=== PATIENT | male | born 1970 | race Caucasian/White ===

== ENCOUNTER 2020-05-29 10:54 | Outpatient (REF) | payer OTHER, SELFPAY | END 2020-05-29 10:55 | disposition home or self-care (01) | LOC: HO.LAB 10:54 | PROVIDERS: Visit Provider Internal Medicine | DX: Z20.828 Contact with and (suspected) exposure to other viral communicable diseases (principal) | CPT/HCPCS: C9803; U0003 ==

== ENCOUNTER 2020-06-18 15:02 | Outpatient (REF) | payer OTHER, SELFPAY | END 2020-06-18 15:03 | disposition home or self-care (01) | LOC: HO.LAB 15:02 | PROVIDERS: Visit Provider Internal Medicine | DX: Z20.822 Contact with and (suspected) exposure to COVID-19 (principal) | CPT/HCPCS: 36415; C9803; U0003 ==

== ENCOUNTER → 2020-09-05 10:01 | Outpatient (BNVA) | payer OTHER, SELFPAY | PROVIDERS: PCP Internal Medicine; Visit Provider Urology | DX: Z13.89 Encounter for screening for other disorder (principal) | CPT/HCPCS: 99202 ==

== ENCOUNTER → 2020-12-06 09:50 | Outpatient (BNVA) | payer OTHER, SELFPAY | PROVIDERS: PCP Internal Medicine; Visit Provider Urology | DX: E29.1 Testicular hypofunction (principal); N52.39 Other and unspecified postprocedural erectile dysfunction | CPT/HCPCS: 99212 ==

== ENCOUNTER → 2020-12-13 08:49 | Outpatient (BNVA) | payer OTHER, SELFPAY | PROVIDERS: PCP Internal Medicine; Visit Provider Urology | DX: E29.1 Testicular hypofunction (principal) | CPT/HCPCS: 96372 ==

== ENCOUNTER 2021-01-07 08:04 | Outpatient (REF) | payer OTHER, SELFPAY ==
[2021-01-07 08:42] LABS: MANUAL DIFF FLAG NO
[2021-01-07 09:05] LABS: Basophils Absolute Auto 0.1 X10*3/uL (0.0-0.2); Basophils Percent Auto 0.5 % (0-2); Eosinophils Absolute Auto 0.3 X10*3/uL (0.0-0.4); Eosinophils Percent Auto 2.6 % (0-4); Imm Gran Abs Auto 0.09 X10*3/uL (0.00-0.03); Imm Gran Pct Auto 0.9 % (0.0-0.4); Lymphocytes Absolute Auto 3.3 X10*3/uL (1.2-4.9); Lymphocytes Percent Auto 34.2 % (20-40); Mean Corpuscular HGB Conc 33.3 g/dl (31.0-36.0); Mean Corpuscular Hemoglobin 30.8 pg (27.0-33.0); Mean Corpuscular Volume 92.5 fL (80-98); Mean Platelet Volume 10.3 fL (9.4-12.4); Monocytes Absolute Auto 0.7 X10*3/uL (0.1-1.2); Monocytes Percent Auto 6.9 % (2-11); Neutrophils Absolute Auto 5.3 X10*3/uL (2.0-8.3); Neutrophils Percent Auto 54.9 % (45-73); Platelet Count 235 X10*3/uL (160-400); Red Blood Count 4.54 X10*6/uL (4.60-5.80); Red Cell Distribution Width 13.9 % (11.0-16.0); White Blood Count 9.7 X10*3/uL (4.8-10.8)
[2021-01-07 10:26] LABS: Alanine Aminotransferase 40 U/L (0-40); Albumin Level 4.4 g/dL (3.5-5.0); Alkaline Phosphatase 58 U/L (39-117); Anion Gap 17 (12-20); Aspartate Amino Transferase 29 U/L (5-37); Bilirubin Total 0.4 mg/dL (0.0-1.0); Blood Urea Nitrogen 15 mg/dL (9-16); Calcium 9.5 mg/dL (8.4-10.2); Carbon Dioxide 22 mmol/L (22-29); Chloride 104 mmol/L (96-108); Cholesterol 241 mg/dL; Estimated Glomerular Filt Rate > 60; Glucose Fasting 131 mg/dL (60-99); HDL Cholesterol 25 mg/dL; LDL Cholesterol Calculated 171 mg/dl; Potassium 4.3 mmol/L (3.3-5.1); Sodium 139 mmol/L (135-145); Total Protein 7.6 g/dL (6.5-8.0); Triglycerides 225 mg/dL
[2021-01-11 11:06] LABS: Vitamin D 25-OH, D2 <4 ng/mL; Vitamin D 25-OH, D3 11 ng/mL; Vitamin D 25-OH, Total 11 ng/mL (30-100)
[2021-01-14 17:05] LABS: Testosterone, Free 90.7 pg/mL (35.0-155.0); Testosterone, Total 428 ng/dL (250-1100)
== END 2021-01-07 08:05 | disposition home or self-care (01) ==
LOC: HO.LAB 08:04
PROVIDERS: Absent Provider Internal Medicine; PCP Internal Medicine; Visit Provider Urology
DX: E55.9 Vitamin D deficiency, unspecified (principal); I25.810 Atherosclerosis of coronary artery bypass graft(s) without angina pectoris; D64.9 Anemia, unspecified; N52.39 Other and unspecified postprocedural erectile dysfunction; E29.1 Testicular hypofunction; I10 Essential (primary) hypertension
CPT/HCPCS: 36415; 80053; 80061; 82306; 84402; 84403; 85025

== ENCOUNTER → 2021-01-17 09:07 | Outpatient (BNVA) | payer OTHER, SELFPAY | PROVIDERS: PCP Internal Medicine; Visit Provider Urology ==

== ENCOUNTER 2021-02-27 11:27 | Outpatient (REF) | payer OTHER, SELFPAY ==
[2021-02-27 12:54] LABS: Appearance Urine CLEAR; Color Urine YELLOW; Glucose Urine UA >=1000 MG/DL (NEG); Leukocyte Esterase Urine NEG (NEG); Nitrite Urine NEG (NEG); Specific Gravity - Urine 1.025 (1.005-1.025); Urine Blood NEG (NEG); Urine Ketones 5 MG/DL (NEG); Urine Protein NEG (NEG-TRACE)
[2021-02-27 13:11] LABS: Creatinine Urine 138.27 mg/dL; Microalbum/Creatinine Ratio Ur 14.4 ug/mg cr
[2021-02-27 13:22] LABS: Alanine Aminotransferase 34 U/L (0-40); Albumin Level 4.3 g/dL (3.5-5.0); Alkaline Phosphatase 71 U/L (39-117); Anion Gap 14 (12-20); Aspartate Amino Transferase 25 U/L (5-37); Bilirubin Total 0.6 mg/dL (0.0-1.0); Blood Urea Nitrogen 15 mg/dL (9-16); Calcium 9.5 mg/dL (8.4-10.2); Carbon Dioxide 27 mmol/L (22-29); Chloride 99 mmol/L (96-108); Cholesterol 225 mg/dL; Estimated Glomerular Filt Rate > 60; Glucose Fasting 311 mg/dL (60-99); HDL Cholesterol 23 mg/dL; LDL Cholesterol Calculated 143 mg/dl; Potassium 4.5 mmol/L (3.3-5.1); Sodium 135 mmol/L (135-145); Total Protein 7.2 g/dL (6.5-8.0); Triglycerides 298 mg/dL
[2021-02-27 14:48] LABS: RBC Urine 0-2 /HPF (0)
[2021-02-27 14:49] LABS: Squamous Epithelial Cell Urine 2+ /LPF
== END 2021-02-27 11:28 | disposition home or self-care (01) ==
LOC: HO.LAB 11:27
PROVIDERS: Absent Provider Internal Medicine; PCP Internal Medicine; Visit Provider Nurse Practitioner Family
DX: I25.810 Atherosclerosis of coronary artery bypass graft(s) without angina pectoris (principal); E78.5 Hyperlipidemia, unspecified; E11.9 Type 2 diabetes mellitus without complications
CPT/HCPCS: 36415; 80053; 80061; 81001; 82043

== ENCOUNTER → 2021-04-18 11:54 | Outpatient (BNVA) | payer OTHER, SELFPAY | PROVIDERS: Visit Provider Urology ==

== ENCOUNTER 2021-07-10 08:14 | Outpatient (REF) | payer OTHER, SELFPAY ==
[2021-07-10 09:01] LABS: Hematocrit 39.6 % (42.0-52.0); Hemoglobin 13.3 g/dl (14.0-18.0); Mean Corpuscular HGB Conc 33.6 g/dl (31.0-36.0); Mean Corpuscular Hemoglobin 30.9 pg (27.0-33.0); Mean Corpuscular Volume 92.1 fL (80.0-98.0); Mean Platelet Volume 10.6 fL (9.4-12.4); Platelet Count 204 X10*3/uL (160-400); Red Cell Distribution Width 12.6 % (11.0-16.0); White Blood Count 8.8 X10*3/uL (4.8-10.8)
[2021-07-10 09:27] LABS: Alanine Aminotransferase 48 U/L (0-40); Albumin Level 4.3 g/dL (3.5-5.0); Alkaline Phosphatase 68 U/L (39-117); Anion Gap 13 (12-20); Aspartate Amino Transferase 24 U/L (5-37); Bilirubin Total 0.3 mg/dL (0.0-1.0); Blood Urea Nitrogen 17 mg/dL (9-16); Calcium 9.3 mg/dL (8.4-10.2); Carbon Dioxide 25 mmol/L (22-29); Chloride 104 mmol/L (96-108); Cholesterol 240 mg/dL; Estimated Glomerular Filt Rate > 60; Glucose Fasting 291 mg/dL (60-99); HDL Cholesterol 23 mg/dL; LDL Cholesterol Calculated 139 mg/dl; Potassium 4.3 mmol/L (3.3-5.1); Sodium 138 mmol/L (135-145); Total Protein 7.3 g/dL (6.5-8.0); Triglycerides 394 mg/dL
[2021-07-10 09:45] LABS: Prostate Specific Antigen 0.58 ng/mL (<0.05-4.0)
[2021-07-10 09:50] LABS: Microalbum/Creatinine Ratio Ur 13.2 ug/mg cr
[2021-07-14 14:16] LABS: Vitamin D 25-OH, D2 <4 ng/mL; Vitamin D 25-OH, D3 8 ng/mL; Vitamin D 25-OH, Total 8 ng/mL (30-100)
[2021-07-15 09:31] LABS: Testosterone, Total 166 ng/dL (250-1100)
== END 2021-07-10 08:15 | disposition home or self-care (01) ==
LOC: HO.LAB 08:14
PROVIDERS: Absent Provider Internal Medicine; PCP Internal Medicine; Visit Provider Urology
DX: E29.1 Testicular hypofunction (principal); I25.810 Atherosclerosis of coronary artery bypass graft(s) without angina pectoris; E78.5 Hyperlipidemia, unspecified; E11.9 Type 2 diabetes mellitus without complications; N52.39 Other and unspecified postprocedural erectile dysfunction; E55.9 Vitamin D deficiency, unspecified; Z12.5 Encounter for screening for malignant neoplasm of prostate
CPT/HCPCS: 36415; 80053; 80061; 82043; 82306; 84153; 84403; 85027

== ENCOUNTER → 2021-07-25 08:47 | Outpatient (BNVA) | payer OTHER, SELFPAY | PROVIDERS: Visit Provider Urology ==

== ENCOUNTER 2022-01-15 07:02 | Outpatient (REF) | payer MEDICARE, MEDICAID, SELFPAY ==
[2022-01-15 07:31] LABS: MANUAL DIFF FLAG NO
[2022-01-15 07:52] LABS: Basophils Absolute Auto 0.1 X10*3/uL (0.0-0.2); Basophils Percent Auto 0.7 % (0-2); Eosinophils Absolute Auto 0.2 X10*3/uL (0.0-0.4); Eosinophils Percent Auto 2.5 % (0-4); Hematocrit 42.2 % (42.0-52.0); Hemoglobin 14.3 g/dl (14.0-18.0); Imm Gran Abs Auto 0.05 X10*3/uL (0.00-0.03); Imm Gran Pct Auto 0.5 % (0.0-0.4); Lymphocytes Absolute Auto 3.8 X10*3/uL (1.2-4.9); Lymphocytes Percent Auto 39.6 % (20-40); Mean Corpuscular HGB Conc 33.9 g/dl (31.0-36.0); Mean Corpuscular Hemoglobin 30.4 pg (27.0-33.0); Mean Corpuscular Volume 89.6 fL (80.0-98.0); Mean Platelet Volume 10.6 fL (9.4-12.4); Monocytes Absolute Auto 0.6 X10*3/uL (0.1-1.2); Monocytes Percent Auto 6.1 % (2-11); Neutrophils Absolute Auto 4.8 x10*3/uL (2.0-8.3); Neutrophils Percent Auto 50.6 % (45-73); Platelet Count 227 X10*3/uL (160-400); Red Blood Count 4.71 X10*6/uL (4.60-5.80); White Blood Count 9.5 X10*3/uL (4.8-10.8)
[2022-01-15 08:21] LABS: Alanine Aminotransferase 69 U/L (0-40); Albumin Level 4.6 g/dL (3.5-5.0); Alkaline Phosphatase 65 U/L (39-117); Anion Gap 17 (12-20); Aspartate Amino Transferase 38 U/L (5-37); Bilirubin Total 0.3 mg/dL (0.0-1.0); Blood Urea Nitrogen 14 mg/dL (9-16); Calcium 9.6 mg/dL (8.4-10.2); Carbon Dioxide 26 mmol/L (22-29); Chloride 102 mmol/L (96-108); Cholesterol 245 mg/dL; Estimated Glomerular Filt Rate > 60; Glucose Fasting 147 mg/dL (60-99); HDL Cholesterol 28 mg/dL; Iron 89 mcg/dL (45-160); LDL Cholesterol Calculated 148 mg/dl; Percent Iron Saturation 25 % (15-50); Potassium 4.6 mmol/L (3.3-5.1); Sodium 140 mmol/L (135-145); Total Iron Binding Capacity 353 mcg/dL (228-428); Total Protein 7.8 g/dL (6.5-8.0); Triglycerides 345 mg/dL; Unsaturated Iron Binding 264 ug/dL
[2022-01-15 08:33] LABS: Vitamin D 25-OH Total 15.7 ng/mL (>30)
[2022-01-15 08:41] LABS: Prostate Specific Antigen 0.66 ng/mL (<0.05-4.0)
[2022-01-15 08:48] LABS: Creatinine Urine 169.98 mg/dL; Microalbum/Creatinine Ratio Ur 11.1 ug/mg cr
[2022-01-21 17:52] LABS: Testosterone, Total 295 ng/dL (250-1100)
== END 2022-01-15 07:03 | disposition home or self-care (01) ==
LOC: HO.LAB 07:02
PROVIDERS: Absent Provider Internal Medicine; PCP Internal Medicine; Visit Provider Urology
DX: Z12.5 Encounter for screening for malignant neoplasm of prostate (principal); E11.9 Type 2 diabetes mellitus without complications; D64.9 Anemia, unspecified; I10 Essential (primary) hypertension; E29.1 Testicular hypofunction; E55.9 Vitamin D deficiency, unspecified
CPT/HCPCS: 36415; 80053; 80061; 82043; 82306; 83540; 84153; 84403; 85025

== ENCOUNTER → 2022-01-22 08:48 | Outpatient (BNVA) | payer MEDICARE, MEDICAID, SELFPAY | PROVIDERS: PCP Internal Medicine; Visit Provider Urology | DX: E29.1 Testicular hypofunction (principal); N52.1 Erectile dysfunction due to diseases classified elsewhere; E11.69 Type 2 diabetes mellitus with other specified complication; Z79.4 Long term (current) use of insulin | CPT/HCPCS: 99212 ==

== ENCOUNTER → 2022-08-11 08:53 | Outpatient (BNVA) | payer MEDICARE, MEDICAID, SELFPAY | PROVIDERS: PCP Internal Medicine; Visit Provider Physician Assistant | DX: Z01.818 Encounter for other preprocedural examination (principal); K59.09 Other constipation | CPT/HCPCS: 99202 ==

== ENCOUNTER → 2022-09-02 09:05 | Outpatient (BNVA) | payer MEDICARE, MEDICAID, SELFPAY | PROVIDERS: PCP Internal Medicine; Referring Provider Internal Medicine; Visit Provider Internal Medicine Cardiovascular Disease | DX: I25.10 Atherosclerotic heart disease of native coronary artery without angina pectoris (principal) | CPT/HCPCS: 93005; 99202 ==

== ENCOUNTER 2022-11-16 08:26 | Outpatient (REF) | payer MEDICARE, MEDICAID, SELFPAY ==
[2022-11-16 09:05] LABS: Hematocrit 44.5 % (42.0-52.0)
[2022-11-16 09:42] LABS: Cholesterol 256 mg/dL; HDL Cholesterol 29 mg/dL; LDL Cholesterol Calculated 175 mg/dl; Triglycerides 262 mg/dL
[2022-11-16 09:44] LABS: Prostate Specific Antigen 0.99 ng/mL (<0.05-4.0)
[2022-11-18 17:13] LABS: CRP High Sensitivity 2.9 mg/L
[2022-11-22 11:24] LABS: Testosterone, Total 205 ng/dL (250-1100)
== END 2022-11-16 08:27 | disposition home or self-care (01) ==
LOC: HO.LAB 08:26
PROVIDERS: Internal Medicine Cardiovascular Disease; PCP Internal Medicine; Visit Provider Urology
DX: Z12.5 Encounter for screening for malignant neoplasm of prostate (principal); E29.1 Testicular hypofunction; I25.10 Atherosclerotic heart disease of native coronary artery without angina pectoris
CPT/HCPCS: 36415; 80061; 84153; 84403; 85014; 86141

== ENCOUNTER → 2022-11-27 11:28 | Outpatient (BNVA) | payer MEDICARE, MEDICAID, SELFPAY | PROVIDERS: PCP Internal Medicine; Visit Provider Urology | DX: E11.69 Type 2 diabetes mellitus with other specified complication (principal); N52.1 Erectile dysfunction due to diseases classified elsewhere; E29.1 Testicular hypofunction | CPT/HCPCS: Q3014 ==

== ENCOUNTER 2022-12-07 08:03 | Outpatient (REF) | payer MEDICARE, MEDICAID, SELFPAY ==
[2022-12-07 09:45] LABS: Alanine Aminotransferase 42 U/L (0-40); Albumin Level 4.1 g/dL (3.5-5.0); Alkaline Phosphatase 59 U/L (39-117); Anion Gap 14 (12-20); Aspartate Amino Transferase 21 U/L (5-37); Bilirubin Total 0.4 mg/dL (0.0-1.0); Blood Urea Nitrogen 19 mg/dL (9-16); Carbon Dioxide 22 mmol/L (22-29); Chloride 105 mmol/L (96-108); Cholesterol 252 mg/dL; Estimated Glomerular Filt Rate > 60; Glucose Fasting 150 mg/dL (60-99); HDL Cholesterol 27 mg/dL; Iron 79 mcg/dL (45-160); LDL Cholesterol Calculated 162 mg/dl; Percent Iron Saturation 28 % (15-50); Potassium 3.7 mmol/L (3.3-5.1); Sodium 137 mmol/L (135-145); Total Iron Binding Capacity 284 mcg/dL (228-428); Total Protein 7.4 g/dL (6.5-8.0); Triglycerides 317 mg/dL; Unsaturated Iron Binding 205 ug/dL
[2022-12-07 09:48] LABS: Vitamin D 25-OH Total 29.4 ng/mL (>30)
== END 2022-12-07 08:04 | disposition home or self-care (01) ==
LOC: HO.LAB 08:03
PROVIDERS: PCP Internal Medicine; Visit Provider Internal Medicine
DX: D64.9 Anemia, unspecified (principal); E55.9 Vitamin D deficiency, unspecified; E53.8 Deficiency of other specified B group vitamins; E11.40 Type 2 diabetes mellitus with diabetic neuropathy, unspecified; E78.5 Hyperlipidemia, unspecified
CPT/HCPCS: 36415; 80053; 80061; 82043; 82306; 82607; 82746; 83036; 83540; 85025

== ENCOUNTER 2022-12-17 16:15 | Outpatient (AMB) | payer MEDICARE, MEDICAID, SELFPAY ==
[2022-12-17 16:16] VITALS: BP 120/80; BMI 40.2
--- NOTE | 2022-12-17 16:16 | A.OFFPC_ITS ---
Vital Signs 12/17/22 16:16 Height 5 ft 11 in Weight 288 lb BMI 40.2 BP 120/80 Blood Pressure Location Lt brachial Position Sitting Intake Visit Reasons: dm Intake Note: Patient here for a follow up dm Riprap Placer Required: No Accompanied by: Self / Same As Patient Allergies No Known Allergies Allergy (Verified 12/17/22 16:50) Medication List - Last Reconciled 12/17/22 by Cynthia Rizzo MD aspirin 81 mg PO DAILY 90 days atorvastatin 80 mg PO DAILY 90 days bisacodyl (Dulcolax (bisacodyl)) 10 mg (2 x 5 mg) PO ONCE 1 day blood sugar diagnostic (FreeStyle Lite Strips) As directed test 2x daily blood-glucose meter (FreeStyle Lite Meter kit) As directed 2x day cholecalciferol (vitamin D3) 50 mcg PO DAILY 90 days docusate sodium (Colace) 200 mg (2 x 100 mg) PO BEDTIME ezetimibe 10 mg PO DAILY 90 days famotidine 20 mg PO DAILY 90 days flash glucose scanning reader ([employer] Chey 14 Day [place]) As directed furosemide 20 mg PO DAILY lancets (FreeStyle Lancets) As directed 2x daily losartan 25 mg PO DAILY metformin 1,000 mg PO BID 90 days metformin 500 mg PO BIDWMEAL methylcellulose (laxative) (Citrucel) 500 mg PO BID metoprolol succinate ER 25 mg PO DAILY 90 days needle (disp) 18 G (BD Regular Bevel Vanlue) To draw up medication needle (disp) 22 G (BD Regular Bevel Vanlue) For testosterone injection weekly oxycodone 10 mg PO BID PRN 30 days polyethylene glycol 3350 (Miralax) 238 grams PO ONCE 1 day sertraline 50 mg PO DAILY 90 days syringe (disposable) As directed for weekly testosterone injection syringe with needle (BD SafetyGlide Shielding Regular Bevel) As directed testosterone cypionate (Depo-Testosterone) 80 mg (0.4 mL) subcut QWEEK 4 weeks ticagrelor (Brilinta) 90 mg PO BID 90 days Tobacco use date assessed: 06/25/22 Dental Screening Dental Screen Date: 12/17/22 Did you have a dental visit in the last 12 months?: Yes Did you have a dental problem in the last 6 months where you did not have access to dental care?: No Was dental information given to patient?: Patient has dentist HPI HPI Comments History of Present Illness Details This is a 52-year-old female with diabetes mellitus type 2, hypertension, mixed hyperlipidemia, severe depression and morbid obesity that comes today for follow-up on his conditions. A1c has improved but still not on goal and I will add Farxiga. Blood pressure stable. Cholesterol and triglycerides are elevated and LDL not on goal because he is not compliant with atorvastatin more Zetia. I will add fenofibrate for triglycerides. Depression has improved with sertraline. He is morbidly obese with a BMI of 40.2 on was advised to diet and exercise as tolerated to reach BMI goal less than 30. Declines weight loss surgery. FORMERLY [facility] Medical History (Updated 12/17/22 @ 17:11 by Cynthia Rizzo MD) CAD (coronary artery disease) Diabetes mellitus Essential hypertension Insomnia Long-term use of aspirin therapy Morbid obesity KHOA (obstructive sleep apnea) Severe depression Smoker Sternal pain Surgical History History of coronary artery bypass graft x 3 History of sternectomy Stented coronary artery Family History Father Cancer Diabetes Hypertension Stroke Mother Hypertension Diabetes Paternal Grandmother Cancer Skin cancer Paternal Uncle Colon cancer Family/Other FH: mental illness Maternal Uncle Cancer Social History Household Members Other:: lives alone Housing: Apartment Alcohol intake: never Patient Tobacco Use Status: Current someday Tobacco user Tobacco use type: Cigarette Cigarettes Per Day: 2 e-Cigarette/Vaping Use: Never Used Second Hand Smoke Exposure: No service: No Current occupational status: unemployed Cognitive needs: No Hearing needs: No Vision needs: Yes Questionnaire Thrive Questionnaire Date Thrive assessed: 06/25/22 CÉSAR-7 AMB Questionnaire CÉSAR-7 Date CÉSAR - 7 assessed: 06/25/22 Source: Developed by Drs. Reji Nelson, Linda Sanchez, [employer] and colleagues, with an educational arnold from [employer]. Review of Systems Const All systems reviewed & are unremarkable except as noted in HPI and below Eyes Reports no additional complaints, Denies change in vision and Denies other visual disturbances Card Denies chest pain at rest, Denies chest pain with activity, Denies edema, Denies irregular heart rhythm, Denies claudication, Denies dyspnea, Denies dyspnea on exertion, Denies orthopnea, Denies paroxysmal nocturnal dyspnea and Denies slow heart rate Resp Denies cough, Denies dyspnea and Denies dyspnea on exertion GI Denies abdominal pain, Denies change in bowel habits, Denies excessive flatus, Denies nausea and Denies vomiting Denies urinary hesitancy, Denies urinary incontinence and Denies urinary urgency Musc Denies abnormal gait, Denies atrophy, Denies deformity and Denies limited range of motion Skin/Breast Denies bleeding lesions, Denies changing lesions and Denies rash Neuro Denies abnormal gait and Denies lack of coordination Physical exam (Primary Care) Vital Signs: Last Vital Signs BP 120/80 12/17/22 16:16 BMI result Body Mass Index 40.2 Tobacco/Smoking Status: Tobacco use Status Tobacco use date assessed 06/25/22 12/17/22 16:25 Patient Tobacco Use Status Current someday Tobacco 12/17/22 16:25 Tobacco use type Cigarette 12/17/22 16:25 e-Cigarette/Vaping Use Never Used 12/17/22 16:25 Thrive Assessment: Date of Thrive Assessment Date Thrive assessed 06/25/22 12/17/22 16:25 Eyes General: appearance normal, both eyes and all related structures Eyelids: Yes eyelids normal Conjunctivae: conjunctivae normal Neck Neck: Yes normal visual inspection and Yes supple Resp Effort & Inspection: normal respiratory effort Auscultation: clear to auscultation bilaterally Cardio Jugular venous distension: no JVD Rate: regular rate Rhythm: regular rhythm Heart sounds: S1 normal heart sound present and S2 normal heart sound present Extrem General: Yes full ROM Assessment and Plan Assessment & Plan (1) Diabetes mellitus: Code(s): E11.9 - Type 2 diabetes mellitus without complications Plan: Continue metformin. Start Farxiga. A1c goal is equal or less than 7%. (2) Morbid obesity with BMI of 40.0-44.9, adult: Code(s): E66.01 - Morbid (severe) obesity due to excess calories; Z68.41 - Body mass index [BMI] 40.0-44.9, adult Plan: Start diet and exercise. BMI goal is less than 30. (3) Severe depression: Code(s): F32.2 - Major depressive disorder, single episode, severe without psychotic features Plan: Continue sertraline. (4) Essential hypertension: Code(s): I10 - Essential (primary) hypertension Plan: Continue losartan. Blood pressure goal is equal or less than 130/80. (5) Mixed hyperlipidemia: Code(s): E78.2 - Mixed hyperlipidemia Plan: Continue statins and Zetia. Start fenofibrate. LDL goal is less than 70. Medications: New fenofibrate 54 mg PO DAILY 90 days 90 tabs 1RF dapagliflozin propanediol (Farxiga) 5 mg PO DAILY 90 days 90 tabs 1RF Coding Level of Care Code Est Pt Level 4 (75526) Diagnoses Diabetes mellitus E11.9 Morbid obesity with BMI of 40.0-44.9, adult E66.01; Z68.41 Severe depression F32.2 Essential hypertension I10 Mixed hyperlipidemia E78.2 Time Spent (min) 24
== END 2022-12-17 16:59 | disposition home or self-care (01) ==
PROVIDERS: Visit Provider Internal Medicine
DX: E11.9 Type 2 diabetes mellitus without complications (principal); E66.01 Morbid (severe) obesity due to excess calories; Z68.41 Body mass index [BMI] 40.0-44.9, adult; F32.2 Major depressive disorder, single episode, severe without psychotic features; I10 Essential (primary) hypertension; E78.2 Mixed hyperlipidemia
CPT/HCPCS: 99214

== ENCOUNTER 2023-01-26 10:41 | Day surgery (SDC) | payer MEDICARE, MEDICAID, SELFPAY ==
[2023-01-22 15:06] VITALS: BMI 40.4
--- NOTE | 2023-01-26 11:26 | MHC.SHP ---
Pre-Procedural Eval Section A Date of Service: 01/26/23 Section B Chief Complaint: Screening Details of Present Illness: uncle with CRC Relevant Family History (Specify if Yes): Yes Relevant Social History: Tobacco Use Present Medications: see Short Stay Collaborative assessment Medical History: Significant History (CAD (coronary artery disease) Diabetes mellitus Essential hypertension Insomnia Long-term use of aspirin therapy Morbid obesity KHOA (obstructive sleep apnea) Severe depression Smoker Sternal pain) History of Previous Operations: Relevant previous surgery/procedure and date(s) (History of coronary artery bypass graft x 3 History of sternectomy Stented coronary artery) Allergies: Allergies Allergy/AdvReac Type Severity Reaction Status Date / Time No Known Allergies Allergy Verified 12/17/22 16:50 Review of Systems Sugical H&P ROS: Negative: Constitution, Cardiovascular, Respiratory, Neurological, Psychiatric, Hem-Onc, Allergic/Immunologic, Gastrointestinal, Genitourinary, Musculoskeletal, Integumentary, Endocrine and Eyes/Ears/Nose/Throat Exam Surgical H&P Exam: Normal: HEENT, Normal: Heart, Normal: Lungs, Normal: Extremities, Normal: Abdomen, Normal: Skin and Normal: Neurological Plan Diagnosis/Plan: Unchanged I have reviewed the history and physical and performed a pertinent physical examination on my patient. No changes have occurred unless specified. Time Spent With Patient Time: Total time managing care of this patient today ____ minutes.
[2023-01-26 11:48] VITALS: BP 131/82; PULSE 78; RESP 18; TEMP 36.3; O2SAT 99
--- NOTE | 2023-01-26 11:50 | P.CONAN_ITS ---
HPI - Anesthesia Eval Consult details Narrative: Colonoscopy FORMERLY [facility] Active Problems Active Problems: All Active Problems (Updated 12/17/22 @ 17:11 by Cynthia Rizzo MD) Mixed hyperlipidemia (Acute) CAD (coronary artery disease) (Acute) Hospital discharge follow-up (Acute) Chronic constipation (Acute) Screen for colon cancer (Acute) Physical exam (Acute) Erectile dysfunction associated with type 2 diabetes mellitus (Acute) Diabetes mellitus (Acute) Leg skin lesion, right (Acute) Morbid obesity with BMI of 40.0-44.9, adult (Acute) Essential hypertension (Acute) Long-term use of aspirin therapy (Acute) KHOA (obstructive sleep apnea) (Acute) Morbid obesity (Acute) Severe depression (Acute) Insomnia (Acute) Sternal pain (Acute) Erectile dysfunction (Acute) Hypogonadism in male (Acute) Past Medical History Medical History CAD (coronary artery disease) Diabetes mellitus Essential hypertension Insomnia Long-term use of aspirin therapy Morbid obesity KHOA (obstructive sleep apnea) Severe depression Smoker Sternal pain Family History Family History Father Cancer Diabetes Hypertension Stroke Mother Hypertension Diabetes Paternal Grandmother Cancer Skin cancer Paternal Uncle Colon cancer Family/Other FH: mental illness Maternal Uncle Cancer Family history of problems with anesthesia: No Surgical History Surgical History History of coronary artery bypass graft x 3 History of sternectomy Stented coronary artery History of Problems with Anesthesia: No Social History Social History Household Members Other:: lives alone Housing: Apartment Alcohol intake: never Patient Tobacco Use Status: Current someday Tobacco user Tobacco use type: Cigarette Cigarettes Per Day: 2 e-Cigarette/Vaping Use: Never Used Second Hand Smoke Exposure: No Advance Directives: No Advance Directives Information Provided: Yes service: No Current occupational status: unemployed Cognitive needs: No Hearing needs: No Vision needs: Yes Meds Allergies Allergy/AdvReac Type Severity Reaction Status Date / Time No Known Allergies Allergy Verified 12/17/22 16:50 Home Medications Medication Instructions Recorded Confirmed Last Taken Type syringe with needle 1 mL 25 gauge #1 ea 01/17/21 12/17/22 Unknown History x 5/8 (BD SafetyGlide Shielding Regular Bevel) furosemide 20 mg tablet 20 mg PO DAILY 08/24/22 12/17/22 Unknown History losartan 25 mg tablet 25 mg PO DAILY 08/24/22 12/17/22 Unknown History Exam Exam Date and Time: January 26, 2023 1150 Height,Weight and Vital Signs: Height 5 ft 11 in Weight 131.542 kg Airway Mallampati Class: III TM Dist: >3cm Neck ROM: Limited Heart: rrr Lungs: cta Assessment and Plan Assessment Anesthesia Assessment: Anesthesia Plan Discussed and Chart Reviewed Final Anesthetic Review Family History of Problems with Anesthesia: No History of Problems with Anesthesia: No NPO: Yes ASA Class: III Final Preanesthetic Review: No Changes in Pt Med Stat, Meds/Allgs Chart Reviewed, Consent Obtained/Reviewed and Anes Risks/Benef Reviewed Patient Risk: Intermediate Procedure Risk: Low Anesthetic Plan Anesthetic Plan: MAC: and Agree w/ Assess. and Plan Disposition: Standard PACU
[2023-01-26 12:01] LABS: Glucose, Whole Blood 115 mg/dL (60-115)
--- NOTE | 2023-01-26 12:01 | P.OP_ITS ---
Operative Note Operative Note Date of Service: 01/26/23 Narrative: Operative Information Procedure Description: Colonoscopy Indication: screening Anesthesia: MAC COLONOSCOPY Instrument: Olympus variable stiffness ADULT scope 190L Colonoscopy Monitoring: Vital signs and clinical assessment, continuous EKG monitoring, Pulse oximetry, Carbon Dioxide monitoring and blood pressure monitoring were done throughout the procedure. Colon withdrawal time was 21 minutes. Procedure: The patient was placed in the left lateral decubitis position and pre-procedure medications were administered. After a digital rectal examination of the ano-rectum, the video colonoscope was inserted into the rectum and advanced through the colon to the cecum/TI. The colonoscope was slowly withdrawn in a retrograde panoramic fashion and the colon mucosa was carefully examined including a retroflexed view of the rectum. Findings and interventions are described below. Procedure Difficulty: easy Findings: Terminal Ileum-normal Cecum:normal Ascending Colon: x2- 4-6 mm sessile polyps removed with cold forceps, and 3 sessile polyps 5-8 mm removed with cold snare Transverse Colon -normal Descending Colon: x1 sessile polyp 7-8 mm removed with cold snare Sigmoid Colon: x 4 sessile polyps 7-9 mm removed with cold snare Rectum: Retroflexion with small internal hemorrhoids, grade I Anorectum - normal Colon preparation: [place] Bowel Preparation Scale Right colon; 2 Transverse colon: 3 Left colon; 3 (0 = Unprepared colon segment with mucosa not seen due to solid stool that cannot be cleared. 1 = Portion of mucosa of the colon segment seen, but other areas of the colon segment not well seen due to staining, residual stool and/or opaque liquid. 2 = Minor amount of residual staining, small fragments of stool and/or opaque liquid, but mucosa of colon segment seen well. 3 = Entire mucosa of colon segment seen well with no residual staining, small fragments of stool or opaque liquid) Impression and Post Procedure Diagnosis: polyps internal hemorrhoids Plan: High fiber diet leaflet Avoid straining at stool, epsom salts and sitz bath, anusol supps or cream Repeat Colonoscopy in 2-3 years due to polyp burden or earlier if clinically indicated Above findings were reviewed with the patient and relevant handouts were provided if indicated.
[2023-01-26 13:00] VITALS: BP 115/67; PULSE 83; RESP 16; TEMP 36.3; O2SAT 94
[2023-01-26 13:15] VITALS: BP 122/66; PULSE 76; RESP 16; TEMP 36.5; O2SAT 95
== END 2023-01-26 14:16 | disposition home or self-care (01) ==
PROVIDERS: PCP Internal Medicine; Visit Provider Internal Medicine Gastroenterology
PROC: 0DJD8ZZ Inspection of Lower Intestinal Tract, Via Natural or Artificial Opening Endoscopic (ICD-10-PCS; CPT 45378; principal; 2023-01-26 12:30)
DX: Z12.11 Encounter for screening for malignant neoplasm of colon (principal); D12.2 Benign neoplasm of ascending colon; K63.5 Polyp of colon; K64.0 First degree hemorrhoids; K59.09 Other constipation; I25.10 Atherosclerotic heart disease of native coronary artery without angina pectoris; Z95.1 Presence of aortocoronary bypass graft; Z95.5 Presence of coronary angioplasty implant and graft; I10 Essential (primary) hypertension; G47.33 Obstructive sleep apnea (adult) (pediatric); E66.01 Morbid (severe) obesity due to excess calories; Z68.41 Body mass index [BMI] 40.0-44.9, adult; Z79.82 Long term (current) use of aspirin; Z79.4 Long term (current) use of insulin; Z79.899 Other long term (current) drug therapy; Z99.89 Dependence on other enabling machines and devices; F17.210 Nicotine dependence, cigarettes, uncomplicated
CPT/HCPCS: 45385; 45380; 82947; 88305

== ENCOUNTER → 2023-01-26 10:41 | Outpatient (BNV) | payer MEDICARE, MEDICAID, SELFPAY | PROVIDERS: PCP Internal Medicine; Visit Provider Internal Medicine Gastroenterology | DX: Z12.11 Encounter for screening for malignant neoplasm of colon (principal); D12.2 Benign neoplasm of ascending colon; D12.4 Benign neoplasm of descending colon; D12.5 Benign neoplasm of sigmoid colon; K64.0 First degree hemorrhoids | CPT/HCPCS: 45380; 45385 ==

== ENCOUNTER 2023-06-30 07:13 | Outpatient (AMB) | payer MEDICARE, MEDICAID, SELFPAY ==
--- NOTE | 2023-06-30 07:30 | A.OFFPC_ITS ---
Vital Signs 06/30/23 07:31 Height 5 ft 11 in Weight 285 lb BMI 39.7 BP 124/80 Blood Pressure Location Lt brachial Position Sitting Intake Visit Reasons: PE Intake Note: Patient here for a physical exam General House Worker Required: No Accompanied by: Self / Same As Patient Allergies No Known Allergies Allergy (Verified 06/30/23 07:50) Medication List - Last Reconciled 06/30/23 by Cynthia Rizzo MD aspirin 81 mg PO DAILY 90 days atorvastatin 80 mg PO DAILY 90 days blood sugar diagnostic (FreeStyle Lite Strips) As directed test 2x daily blood-glucose meter (FreeStyle Lite Meter kit) As directed 2x day cholecalciferol (vitamin D3) 50 mcg PO DAILY 90 days dapagliflozin propanediol (Farxiga) 5 mg PO DAILY 90 days ezetimibe 10 mg PO DAILY 90 days famotidine 20 mg PO DAILY 90 days fenofibrate 54 mg PO DAILY 90 days flash glucose scanning reader ([employer] Chey 14 Day [place]) As directed furosemide 20 mg PO DAILY lancets (FreeStyle Lancets) As directed 2x daily losartan 25 mg PO DAILY metoprolol succinate ER 25 mg PO DAILY 90 days needle (disp) 18 G (BD Regular Bevel [place]) To draw up medication needle (disp) 22 G (BD Regular Bevel [place]) For testosterone injection weekly oxycodone 10 mg PO BID PRN 30 days syringe (disposable) As directed for weekly testosterone injection syringe with needle (BD SafetyGlide Shielding Regular [place]) As directed testosterone cypionate (Depo-Testosterone) 80 mg (0.4 mL) subcut QWEEK 4 weeks Tobacco use date assessed: 06/30/23 Dental Screening Dental Screen Date: 06/30/23 Did you have a dental visit in the last 12 months?: Yes Did you have a dental problem in the last 6 months where you did not have access to dental care?: No Was dental information given to patient?: Patient has dentist HPI HPI Comments History of Present Illness Details This is a 52-year-old male with diabetes mellitus type 2 and severe depression that comes for his physical exam. A1c of 7.2% today and I will increase Farxiga to help him get within goal. He is depression has improved with SSRIs but still present. Denies any shortness of breath. Still has occasional chest pain when lifting things that is relieved by oxycodone as needed. Last diabetic eye exam was over a year ago. Colonoscopy done January 2023 show few polyps and Gastroenterology wants to repeated in 2-3 years after. [facility] [place] Medical History (Updated 06/30/23 @ 08:08 by Cynthia Rizzo MD) Erectile dysfunction associated with type 2 diabetes mellitus CAD (coronary artery disease) Diabetes mellitus Sternal pain Insomnia Severe depression Morbid obesity KHOA (obstructive sleep apnea) Smoker Long-term use of aspirin therapy Essential hypertension Surgical History Stented coronary artery History of sternectomy History of coronary artery bypass graft x 3 Family History Father Diabetes Hypertension Stroke Mother Hypertension Diabetes Paternal Grandmother Cancer Skin cancer Paternal Uncle Colon cancer Family/Other FH: mental illness Maternal Uncle Cancer Social History Household Members Other:: lives alone Housing: Apartment Are you a primary healthcare receptionist to a significant other at home: No Do you presently have visiting nurse or other home services: No Alcohol intake: never Patient Tobacco Use Status: Current someday Tobacco user Tobacco use type: Cigarette Cigarettes Per Day: 2 e-Cigarette/Vaping Use: Never Used Second Hand Smoke Exposure: No service: No Current occupational status: unemployed Cognitive needs: No Hearing needs: No Vision needs: Yes Questionnaire PHQ-9 Over the last 2 weeks, how often have you been bothered by any of the following problems? 1. Little interest or pleasure in doing things: nearly every day 2. Feeling down, depressed, or hopeless: nearly every day 3. Trouble falling or staying asleep, or sleeping too much: several days 4. Feeling tired or having little energy: not at all 5. Poor appetite or overeating: several days 6. Feeling bad about yourself - or that you are a failure or have let yourself or your family down: not at all 7. Trouble concentrating on things, such as reading the newspaper or watching television: not at all 8. Moving or speaking so slowly that other people could have noticed. Or the opposite - being so fidgety or restless that you have been moving around a lot more than usual: more than half the days 9. Thoughts that you would be better off or of hurting yourself in some way: not at all Total score: 10 Depression Screening Interpretation: Positive Depression Screening Follow-up: Existing condition and In treatment Depression Screening Done: Yes 82667 - PHQ-9 Billing: Yes Source: Developed by Drs. Reji Nelson, Linda Sanchez, Anders Gaming and colleagues, with an educational arnold from [employer]. Thrive Questionnaire Date Thrive assessed: 06/30/23 I am a: Patient What is your living situation today?: I have a steady place to live Within the past 12 months, did the food you bought not last and you didn't have the money to get more?: Never true Within the past 12 months, did you worry whether your food would run out before you got money to buy more?: Never true Do you have trouble paying for medicines?: No Do you have trouble getting transportation to medical appointments?: No Do you have trouble paying your heating and electricity bill?: No Do you have trouble taking care of your child, family member or friend?: No Do you have trouble with day-to-day activities such as bathing, preparing meals, shopping, managing finances, etc.?: No Are you currently unemployed and looking for a job?: No Are you interested in more education?: No Please select the resources that you would like help with: None Currently or been in a relationship where the following occur: no concerns reported THRIVE Score: 0 AUDIT C Alcohol Use Questionnaire (AUDIT-C) 1. How often do you have a drink containing alcohol?: Never Total Score: 0 Score Reviewed/Action Taken: No CÉSAR-7 AMB Questionnaire CÉSAR-7 Date CÉSAR - 7 assessed: 06/30/23 Feeling nervous, anxious, or on edge: 2 = More than half the days Not being able to stop or control worryin = Several days Worrying too much about different things: 3 = Nearly every day Trouble relaxin = More than half the days Being so restless that it is hard to sit still: 2 = More than half the days Becoming easily annoyed or irritable: 2 = More than half the days Feeling afraid as if something awful might happen: 2 = More than half the days Total CÉSAR-7 score (0-4 normal; 5-9 mild; 10-14 moderate; 15-21 severe): 14 Source: Developed by Drs. Reji Nelson, Linda Sanchez, Anders [employer] and colleagues, with an educational arnold from [employer]. CÉSAR-7 Assessment Billing CÉSAR-7 Assessment Tool: CÉSAR-7 Assessment 99125 Review of Systems Const All systems reviewed & are unremarkable except as noted in HPI and below Eyes Reports no additional complaints, Denies change in vision and Denies other visual disturbances Card Denies chest pain at rest, Denies chest pain with activity, Denies edema, Denies irregular heart rhythm, Denies claudication, Denies dyspnea, Denies dyspnea on exertion, Denies orthopnea, Denies paroxysmal nocturnal dyspnea and Denies slow heart rate Resp Denies cough, Denies dyspnea and Denies dyspnea on exertion GI Denies abdominal pain, Denies change in bowel habits, Denies excessive flatus, Denies nausea and Denies vomiting Denies urinary hesitancy, Denies urinary incontinence and Denies urinary urgency Musc Denies abnormal gait, Denies atrophy, Denies deformity and Denies limited range of motion Skin/Breast Denies bleeding lesions, Denies changing lesions and Denies rash Neuro Denies abnormal gait, Denies behavioral changes, Denies confusion and Denies lack of coordination Psych Denies behavioral changes and Denies confusion Physical exam (Primary Care) Vital Signs: Last Vital Signs BP 124/80 06/30/23 07:31 BMI result Body Mass Index 39.7 Tobacco/Smoking Status: Tobacco use Status Tobacco use date assessed 06/30/23 06/30/23 07:40 Patient Tobacco Use Status Current someday Tobacco 06/30/23 07:40 Tobacco use type Cigarette 06/30/23 07:40 e-Cigarette/Vaping Use Never Used 06/30/23 07:40 PHQ-9: PHQ-9 Score PHQ-9: Total score 10 06/30/23 07:57 Depression Screening Interpretation: Positive Depression Screening Follow-up: Existing condition and In treatment Thrive Assessment: Date of Thrive Assessment Date Thrive assessed 06/30/23 06/30/23 07:40 Currently or been in a relationship where the following occur: no concerns reported Const General: No confusion Orientation/consciousness: patient oriented x3 and No confusion HENMT Head: Yes normal to inspection, Yes normocephalic and Yes atraumatic Ears: external ears normal Eyes General: appearance normal, both eyes and all related structures Eyelids: Yes eyelids normal Conjunctivae: conjunctivae normal Neck Neck: Yes normal visual inspection and Yes supple Resp Effort & Inspection: normal respiratory effort Auscultation: clear to auscultation bilaterally Cardio Jugular venous distension: no JVD Rate: regular rate Rhythm: regular rhythm Heart sounds: S1 normal heart sound present and S2 normal heart sound present GI Inspection: Yes normal to inspection Palpation (GI): Soft to palpation and nontender Auscultation: normal bowel sounds Skin General skin exam: no rashes or lesions noted Neuro General: patient oriented x3, no focal motor deficits and No confusion Extrem General: Yes full ROM Psych Appearance: grossly normal Office Procedures Flu Questionnaire Does the patient have a severe egg allergy?: No Does the patient have severe life threatening allergies?: No Does the patient have a fever or illness today?: No Has the patient ever had Guillain-Charlotte Syndrome?: No Has the patient ever had any past reaction to a flu shot?: No Results AMB Hemoglobin A1c AMB Hemoglobin A1c 7.2 % Last Edit by NIRU Hager on 06/30/23 07:5 6 Immunizations flu vacc [id number] 6mos up(PF) 60 mcg(15 mcgx4)/0.5 mL IM syringe Performing Provider: Cynthia Rizzo MD [facility] Administered by: NIRU Hager on 06/30/23 08:03 Dose Route Admin Location Dispensed Lot Number Expiration Date NDC Resident Athletic Trainer 0.5 mL IM Right Deltoid 0.5 mL [id number] 12/05/23 [id number] [employer] VIS Given Date VIS Provided VIS Publication Date 06/30/23 Single Vaccine 21 Eligibility Eligibility Date Funding Source Not [place] Eligible 06/30/23 Private Results Reviewed Results Reviewed: Laboratory Last Values Hgb A1c (Clinic) 7.2 % (4.0-6.0) H 06/30/23 07:54 Assessment and Plan Assessment & Plan (1) Physical exam: Code(s): Z00.00 - Encounter for general adult medical examination without abnormal findings Plan: Repeat in a year. (2) Severe depression: Code(s): F32.2 - Major depressive disorder, single episode, severe without psychotic features Plan: Continue SSRIs (3) Diabetes mellitus: Code(s): E11.9 - Type 2 diabetes mellitus without complications Plan: Increase Farxiga to 10 mg. A1c goal is equal or less than 7% Orders: Orders Influenza [id number] Immunization Today Z23 - Encounter for immunization Microalbumin, Random (w Creat) Today E11.9 - Type 2 diabetes mellitus without complications Vitamin D 25-OH Total Today E55.9 - Vitamin D deficiency, unspecified Complete Blood Count Auto Diff Today D64.9 - Anemia, unspecified IRON PROFILE Today D64.9 - Anemia, unspecified Comprehensive [place]. Panel Fast Today Z00.00 - Encounter for general adult medical examination without abnormal findings AMB Hemoglobin A1c Today E11.9 - Type 2 diabetes mellitus without complications Lipid Panel Today E78.5 - Hyperlipidemia, unspecified Medications: New dapagliflozin propanediol (Farxiga) 10 mg PO DAILY 90 tabs 1RF 90 days E11.9 - Type 2 diabetes mellitus without complications Discontinued dapagliflozin propanediol (Farxiga) Discontinued Reason: Patient Completed Course 5 mg PO DAILY 90 tabs 1RF 90 days Coding Level of Care Code Est Pt Prev Care 40-64y(60560) Diagnoses Physical exam Z00.00 Severe depression F32.2 Diabetes mellitus E11.9 Additional Codes CÉSAR-7 Assessment Billing - CÉSAR-7 Assessment Tool: CÉSAR-7 Assessment 97590 ([id number]) Time Spent (min) 35
[2023-06-30 07:31] VITALS: BP 124/80; BMI 39.7
== END 2023-06-30 08:02 | disposition home or self-care (01) ==
PROVIDERS: Visit Provider Internal Medicine
DX: Z00.00 Encounter for general adult medical examination without abnormal findings (principal); F32.2 Major depressive disorder, single episode, severe without psychotic features; E11.9 Type 2 diabetes mellitus without complications; Z23 Encounter for immunization
CPT/HCPCS: 83036; 90471; 90686; 99396

== ENCOUNTER 2023-07-21 06:59 | Outpatient (REF) | payer MEDICARE, SELFPAY ==
[2023-07-21 07:11] LABS: MANUAL DIFF FLAG NO
[2023-07-21 08:14] LABS: Basophils Absolute Auto 0.1 X10*3/uL (0.0-0.2); Basophils Percent Auto 0.8 % (0-2); Eosinophils Absolute Auto 0.3 X10*3/uL (0.0-0.4); Eosinophils Percent Auto 3.2 % (0-4); Hematocrit 44.6 % (42.0-52.0); Hemoglobin 15.1 g/dl (14.0-18.0); Imm Gran Abs Auto 0.04 X10*3/uL (0.00-0.03); Imm Gran Pct Auto 0.4 % (0.0-0.4); Lymphocytes Absolute Auto 4.5 X10*3/uL (1.2-4.9); Lymphocytes Percent Auto 44.9 % (20-40); Mean Corpuscular HGB Conc 33.9 g/dl (31.0-36.0); Mean Corpuscular Hemoglobin 30.8 pg (27.0-33.0); Mean Platelet Volume 10.4 fL (9.4-12.4); Monocytes Absolute Auto 0.7 X10*3/uL (0.1-1.2); Monocytes Percent Auto 7.4 % (2-11); Neutrophils Absolute Auto 4.3 x10*3/uL (2.0-8.3); Neutrophils Percent Auto 43.3 % (45-73); Platelet Count 270 X10*3/uL (160-400); Red Cell Distribution Width 13.2 % (11.0-16.0); White Blood Count 9.9 X10*3/uL (4.8-10.8)
[2023-07-21 08:39] LABS: Alanine Aminotransferase 38 U/L (0-40); Albumin Level 4.4 g/dL (3.5-5.0); Alkaline Phosphatase 61 U/L (39-117); Anion Gap 12 (12-20); Aspartate Amino Transferase 20 U/L (5-37); Bilirubin Total 0.3 mg/dL (0.0-1.0); Blood Urea Nitrogen 20 mg/dL (9-16); Calcium 9.2 mg/dL (8.4-10.2); Carbon Dioxide 23 mmol/L (22-29); Chloride 108 mmol/L (96-108); Cholesterol 254 mg/dL (<200); Estimated Glomerular Filt Rate > 60; Glucose Fasting 125 mg/dL (60-99); HDL Cholesterol 33 mg/dL (>40); Iron 89 mcg/dL (45-160); LDL Cholesterol Calculated 174 mg/dL (<100); Percent Iron Saturation 27 % (15-50); Potassium 3.8 mmol/L (3.3-5.1); Sodium 139 mmol/L (135-145); Total Iron Binding Capacity 326 mcg/dL (228-428); Triglycerides 238 mg/dL (<150); Unsaturated Iron Binding 237 ug/dL
[2023-07-21 08:42] LABS: Creatinine Urine 109.65 mg/dL; Microalbum/Creatinine Ratio Ur 8.2 ug/mg cr (<30)
[2023-07-21 08:50] LABS: Prostate Specific Antigen 1.36 ng/mL (<0.05-4.0)
[2023-07-21 08:58] LABS: Vitamin D 25-OH Total 11.8 ng/mL (>30)
[2023-07-25 14:43] LABS: Testosterone, Total 300 ng/dL (250-1100)
== END 2023-07-21 07:00 | disposition home or self-care (01) ==
LOC: HO.LAB 06:59
PROVIDERS: Absent Provider Urology; PCP Internal Medicine; Visit Provider Internal Medicine
DX: Z00.00 Encounter for general adult medical examination without abnormal findings (principal); E11.9 Type 2 diabetes mellitus without complications; E55.9 Vitamin D deficiency, unspecified; D64.9 Anemia, unspecified; E78.5 Hyperlipidemia, unspecified; E29.1 Testicular hypofunction; Z12.5 Encounter for screening for malignant neoplasm of prostate
CPT/HCPCS: 36415; 80053; 80061; 82043; 82306; 82570; 83540; 84153; 84403; 85025

== ENCOUNTER 2023-07-30 13:45 | Outpatient (AMB) | payer OTHER, MEDICAID, SELFPAY ==
--- NOTE | 2023-07-30 14:28 | A.OFFVIS_ITS ---
Intake Intake Visit Reasons: PSA/Testosterone (set) Intake Note: Patient presents today for a follow-up Meds- Testosterone Allergies to Antibiotic- No Known Allergies Blood Thinner- Aspirin Unable to update the medication list with patient today, Patient is not sure the names of the medications. Care Director Required: No Accompanied by: Self / Same As Patient Allergies No Known Allergies Allergy (Verified 07/30/23 14:32) Medication List - Last Reconciled 07/30/23 by Delvin Lock MD aspirin 81 mg PO DAILY 90 days atorvastatin 80 mg PO DAILY 90 days blood sugar diagnostic (FreeStyle Lite Strips) As directed test 2x daily blood-glucose meter (FreeStyle Lite Meter kit) As directed 2x day cholecalciferol (vitamin D3) 50 mcg PO DAILY 90 days dapagliflozin propanediol (Farxiga) 10 mg PO DAILY 90 days ezetimibe 10 mg PO DAILY 90 days famotidine 20 mg PO DAILY 90 days fenofibrate 54 mg PO DAILY 90 days flash glucose scanning reader ([employer] Chey 14 Day [place]) As directed furosemide 20 mg PO DAILY lancets ([employer] Lancets) As directed 2x daily losartan 25 mg PO DAILY metoprolol succinate ER 25 mg PO DAILY 90 days needle (disp) 18 G (BD Regular Bevel [place]) To draw up medication needle (disp) 22 G For testosterone injection weekly oxycodone 10 mg PO BID PRN 30 days syringe (disposable) As directed for weekly testosterone injection syringe with needle (BD SafetyGlide Shielding Regular [place]) As directed testosterone cypionate (Depo-Testosterone) 100 mg (0.5 mL) subcut QWEEK 4 weeks HPI HPI Comments History of Present Illness0 Details Thomas is a very pleasant male. He is seen for the following urologic conditions - low testosterone - erectile dysfunction Some improvement back on injectables Wednesday injection day, lab day Continue with 0.5 mg weekly Refills provided Erectile dysfunction Underwent CABG age 48 2020 Failed p.r.n. medications Associated conditions hypertension, dyslipidemia - on medications Partial response to tadalafil for 5 mg daily. Did have heartburn Increase tadalafil to 10 mg, add daily Pepcid Hypogonadism 11/25 T 140 Associated conditions include KHOA and pain with opioid use Current therapy testosterone - 100 mg subcu weekly Injection day Wednesday, lab day Laboratories 01/25 T 450, Hct 42%, 07/29 T166 P 0.6, T 295 0.6 42, 11/27 205 Wednesday, 07/31 T 300 PFSH Medical History Erectile dysfunction associated with type 2 diabetes mellitus CAD (coronary artery disease) Diabetes mellitus Sternal pain Insomnia Severe depression Morbid obesity KHOA (obstructive sleep apnea) Smoker Long-term use of aspirin therapy Essential hypertension Surgical History Stented coronary artery History of sternectomy History of coronary artery bypass graft x 3 Family History Father Diabetes Hypertension Stroke Mother Hypertension Diabetes Paternal Grandmother Cancer Skin cancer Paternal Uncle Colon cancer Family/Other FH: mental illness Maternal Uncle Cancer Social History Household Members Other:: lives alone Housing: Apartment Are you a primary care technician to a significant other at home: No Do you presently have visiting nurse or other home services: No Alcohol intake: never Patient Tobacco Use Status: Current someday Tobacco user Tobacco use type: Cigarette Cigarettes Per Day: 2 e-Cigarette/Vaping Use: Never Used Second Hand Smoke Exposure: No service: No Current occupational status: unemployed Cognitive needs: No Hearing needs: No Vision needs: Yes Review of Systems Const Denies chills and Denies fever(s) Card Reports no additional complaints and Denies syncope Resp Denies cough GI Denies abdominal pain and Denies heartburn Reports as per HPI and Denies change in libido Neuro Denies syncope Psych Denies change in libido Endo Denies change in libido Physical Exam Const General: cooperative, healthy appearing, comfortable and no acute distress Orientation/consciousness: patient oriented x3 HEENT Face and sinus: Yes normal facial exam Mouth: moist mucous membranes Neck Neck: Yes normal visual inspection, Yes full ROM and Yes trachea midline Chest Chest palpation & inspection: normal inspection of the chest Resp Effort & Inspection: normal respiratory effort, able to speak in complete sentences and no respiratory distress GI Inspection: Yes normal to inspection Back/Spine/Pelvis Cervical Spine: normal cervical lordosis Thoracic/Lumbar Spine: thoracic and lumbar spine normal to inspection Skin General skin exam: no rashes or lesions noted Neuro General: patient oriented x3, gait normal, tone normal and moves all extremities Extrem General: Yes normal to inspection and Yes capillary refill normal Assessment & Plan Assessment & Plan (1) Erectile dysfunction: Code(s): N52.9 - Male erectile dysfunction, unspecified Qualifiers: Erectile dysfunction type: post-procedural Post-procedural erectile dysfunction type: unspecified Qualified Code(s): N52.39 - Other and unspecified postprocedural erectile dysfunction (2) Hypogonadism in male: Code(s): E29.1 - Testicular hypofunction Plan Six-month follow-up lab work Orders: Orders Prostate Specific Antigen 6 Months E29.1 - Testicular hypofunction Complete Blood Count no Diff 6 Months E29.1 - Testicular hypofunction Testosterone, Total 6 Months E29.1 - Testicular hypofunction Medications: New syringe with needle (BD SafetyGlide Shielding Regular [place]) As directed 1 ea 0RF E29.1 - Testicular hypofunction Changed From testosterone cypionate (Depo-Testosterone) 80 mg (0.4 mL) subcut QWEEK 4 weeks 2 mL 5RF E29.1 - Testicular hypofunction, [id number] To testosterone cypionate (Depo-Testosterone) 100 mg (0.5 mL) subcut QWEEK 4 weeks 2 mL 5RF E29.1 - Testicular hypofunction, [id number] From needle (disp) 22 G (BD Regular Bevel [place]) For testosterone injection weekly 30 ea 0RF E29.1 - Testicular hypofunction, E34.9 - Endocrine disorder, unspecified To needle (disp) 22 G For testosterone injection weekly 30 ea 0RF E29.1 - Testicular hypofunction, E34.9 - Endocrine disorder, unspecified Refilled needle (disp) 18 G (BD Regular Bevel [place]) To draw up medication 30 ea 0RF E29.1 - Testicular hypofunction Patient Instructions: Imaging studies, laboratory and physical exam results were discussed and reviewed in detail. No major barriers to patient understanding were identified. An opportunity to ask questions regarding the treatment plan was provided. All questions were answered. The patient expressed understanding and agreement with the above treatment plan. The patient is aware they should contact our office by phone for worsening of their current condition or the appearance of new urologic symptoms. Compliance is encouraged with any medications and followup testing that is ordered. It is a privilege to participate in the urologic care of your patient. If you have any questions or concerns regarding treatment for the above conditions, or other urologic issues, please do not hesitate to contact me. The office telephone contact is [phone]. This note is constructed using voice recognition software. While every effort has been made to ensure accuracy pipe crew foreman errors may have been included. Yours sincerely, Dr Delvin Lock MD, [facility] Providers of Expert, Compassionate Care for the Genitourinary System Coding Level of Care Code Est Pt Level 3 (09923) Diagnoses Post-procedural erectile dysfunction, unspecified type N52.39 Erectile dysfunction type: post-procedural Post-procedural erectile dysfunction type: unspecified Hypogonadism in male E29.1
== END 2023-07-30 14:48 | disposition home or self-care (01) ==
PROVIDERS: PCP Internal Medicine; Visit Provider Urology
DX: N52.39 Other and unspecified postprocedural erectile dysfunction (principal); E29.1 Testicular hypofunction
CPT/HCPCS: 99213

== ENCOUNTER → 2023-07-30 13:45 | Outpatient (BNVA) | payer OTHER, MEDICAID, SELFPAY | PROVIDERS: PCP Internal Medicine; Visit Provider Urology | DX: N52.39 Other and unspecified postprocedural erectile dysfunction (principal); E29.1 Testicular hypofunction | CPT/HCPCS: 99212 ==

== ENCOUNTER 2023-10-27 08:12 | Outpatient (AMB) | payer OTHER, SELFPAY ==
--- NOTE | 2023-10-27 08:14 | A.OFFPC_ITS ---
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 Accompanied by: Self / Same As Patient Allergies No Known Allergies Allergy (Verified 10/27/23 08:33) Medication List - Last Reconciled 10/27/23 by Cynthia Rizzo MD aspirin 81 mg PO DAILY 90 days atorvastatin 80 mg PO DAILY 90 days blood sugar diagnostic (FreeStyle Lite Strips) As directed test 2x daily blood-glucose meter (FreeStyle Lite Meter kit) As directed 2x day cholecalciferol (vitamin D3) 50 mcg PO DAILY 90 days dapagliflozin propanediol (Farxiga) 10 mg PO DAILY 90 days ezetimibe 10 mg PO DAILY 90 days famotidine 20 mg PO DAILY 90 days fenofibrate 54 mg PO DAILY 90 days flash glucose scanning reader (Simple[employer] Chey 14 Day [place]) As directed furosemide 20 mg PO DAILY lancets (Care1 Urgent CareStyle Lancets) As directed 2x daily losartan 25 mg PO DAILY metoprolol succinate ER 25 mg PO DAILY 90 days needle (disp) 18 G (BD Regular Bevel [place]) To draw up medication needle (disp) 22 G For testosterone injection weekly oxycodone 10 mg PO BID PRN 30 days syringe (disposable) As directed for weekly testosterone injection syringe with needle (BD SafetyGlide Shielding Regular Bevel) As directed testosterone cypionate (Depo-Testosterone) 100 mg (0.5 mL) subcut QWEEK 4 weeks Tobacco use date assessed: 06/30/23 Dental Screening Dental Screen Date: 06/30/23 HPI HPI Comments History of Present Illness Details This is a 53-year-old male with essential hypertension, mixed hyperlipidemia, diabetes mellitus type 2, coronary artery disease with history of CABG x3 in 2016 and last stented coronary artery was 2022 and chronic chest wall pain relieved by opiates that comes today for follow-up on his conditions. Blood pressure stable. Last LDL was not on goal and this will be repeated. A1c also not on goal and he admits not been completely compliant with Farxiga. I will add Ozempic. He said I have prescribed in the past but he has never taken due to being afraid of side effects. He complains of chronic chest wall pain that is relieved by oxycodone and he signed pain management contract today and did a urine toxicology which results are still pending. So Cardiology at [facility] last week and had a stress test which he does not have the results yet. Was encouraged to be compliant with his medications. On aspirin for secondary prophylaxis of coronary artery disease. [facility] Medical History (Updated 10/27/23 @ 09:00 by Cynthia Rizzo MD) Morbid obesity with BMI of 40.0-44.9, adult Erectile dysfunction associated with type 2 diabetes mellitus CAD (coronary artery disease) Diabetes mellitus Sternal pain Insomnia Severe depression Morbid obesity KHOA (obstructive sleep apnea) Smoker Long-term use of aspirin therapy Essential hypertension Surgical History Stented coronary artery History of sternectomy History of coronary artery bypass graft x 3 Family History Father Diabetes Hypertension Stroke Mother Hypertension Diabetes Paternal Grandmother Cancer Skin cancer Paternal Uncle Colon cancer Family/Other FH: mental illness Maternal Uncle Cancer Social History Household Members Other:: lives alone Housing: Apartment Are you a primary companion caregiver to a significant other at home: No Do you presently have visiting nurse or other home services: No Alcohol intake: never Patient Tobacco Use Status: Current someday Tobacco user Tobacco use type: Cigarette Cigarettes Per Day: 2 e-Cigarette/Vaping Use: Never Used Second Hand Smoke Exposure: No service: No Current occupational status: unemployed Cognitive needs: No Hearing needs: No Vision needs: Yes Questionnaire Thrive Questionnaire Date Thrive assessed: 06/30/23 CÉSAR-7 AMB Questionnaire CÉSAR-7 Date CÉSAR - 7 assessed: 06/30/23 Source: Developed by Drs. Reji Nelson, Linda Sanchez, Anders Gaming and colleagues, with an educational arnold from [employer]. Review of Systems Const All systems reviewed & are unremarkable except as noted in HPI and below Eyes Reports no additional complaints, Denies change in vision and Denies other visual disturbances Card Denies chest pain at rest, Denies chest pain with activity, Denies edema, Denies irregular heart rhythm, Denies claudication, Denies dyspnea, Denies dyspnea on exertion, Denies orthopnea, Denies paroxysmal nocturnal dyspnea and Denies slow heart rate Resp Denies cough, Denies dyspnea and Denies dyspnea on exertion GI Denies abdominal pain, Denies change in bowel habits, Denies excessive flatus, Denies nausea and Denies vomiting Physical exam (Primary Care) Vital Signs: Last Vital Signs BP 130/86 10/27/23 08:17 BMI result Body Mass Index 39.7 Tobacco/Smoking Status: Tobacco use Status Tobacco use date assessed 06/30/23 10/27/23 08:16 Patient Tobacco Use Status Current someday Tobacco 10/27/23 08:16 Tobacco use type Cigarette 10/27/23 08:16 e-Cigarette/Vaping Use Never Used 10/27/23 08:16 Thrive Assessment: Date of Thrive Assessment Date Thrive assessed 06/30/23 10/27/23 08:16 Resp Effort & Inspection: normal respiratory effort Auscultation: clear to auscultation bilaterally Cardio Jugular venous distension: no JVD Rate: regular rate Rhythm: regular rhythm Heart sounds: S1 normal heart sound present and S2 normal heart sound present Extrem General: Yes full ROM Results AMB Hemoglobin A1c AMB Hemoglobin A1c 7.7 % Last Edit by NIRU Hager on 10/27/23 08:2 3 Results Reviewed Results Reviewed: Laboratory Last Values Hgb A1c (Clinic) 7.7 % (4.0-6.0) H 10/27/23 08:14 Assessment and Plan Assessment & Plan (1) Diabetes mellitus: Code(s): E11.9 - Type 2 diabetes mellitus without complications Qualifiers: Diabetes mellitus type: type 2 Diabetes mellitus watermaster insulin use: without group home use Diabetes mellitus complication status: with hyperglycemia Qualified Code(s): E11.65 - Type 2 diabetes mellitus with hyperglycemia Plan: Continue Farxiga. Start Ozempic. A1c goal is equal or less than 7%. (2) Mixed hyperlipidemia: Code(s): E78.2 - Mixed hyperlipidemia Plan: Continue statins and fibrates. LDL goal is less than 70. (3) Chest wall pain: Comment: Pain management contract signes 10/27/2023 Code(s): R07.89 - Other chest pain Plan: Continue oxycodone. Pain management contract signed today. Urine toxicology results pending. Patient is aware that oxycodone can cause addiction and sedation. (4) Essential hypertension: Code(s): I10 - Essential (primary) hypertension Plan: Continue losartan. Blood pressure goal is equal or less than 130/80. (5) CAD (coronary artery disease): Code(s): I25.10 - Atherosclerotic heart disease of [place] coronary artery without angina pectoris Qualifiers: Coronary Disease-Associated Artery/Lesion type: bypass graft [place] vs. transplanted heart: [place] heart Associated angina: with stable angina Qualified Code(s): I25.708 - Atherosclerosis of coronary artery bypass graft(s), unspecified, with other forms of angina pectoris Plan: Continue aspirin for secondary prophylaxis. Continue metoprolol to decrease mortality. Follow-up with Cardiology. Orders: Orders Drug Screen Urine Today R07.89 - Other chest pain Opiates GCMS Expanded, Ur Today R07.89 - Other chest pain AMB Hemoglobin A1c Today E11.9 - Type 2 diabetes mellitus without complications Medications: New semaglutide (Ozempic) for 4 weeks 0.25 mg (0.368 mL) subcut QWEEK 4 weeks 1.472 mL 0RF E11.9 - Type 2 diabetes mellitus without complications Refilled oxycodone Partial Fill upon patient request. 10 mg PO BID 30 days PRN 60 tabs 0RF pain cholecalciferol (vitamin D3) 50 mcg PO DAILY 90 days 90 caps 3RF Coding Level of Care Code Est Pt Level 4 (23743) Diagnoses Type 2 diabetes mellitus with hyperglycemia, without long-term current use of insulin E11.65 Diabetes mellitus type: type 2 Diabetes mellitus group home insulin use: without watermaster use Diabetes mellitus complication status: with hyperglycemia Mixed hyperlipidemia E78.2 Chest wall pain R07.89 Essential hypertension I10 Coronary artery disease of bypass graft of [place] heart with stable angina pectoris I25.708 Coronary Disease-Associated Artery/Lesion type: bypass graft [place] vs. transplanted heart: [place] heart Associated angina: with stable angina Time Spent (min) 25
[2023-10-27 08:17] VITALS: BP 130/86; BMI 39.7
== END 2023-10-27 08:50 | disposition home or self-care (01) ==
PROVIDERS: PCP Internal Medicine; Visit Provider Internal Medicine
DX: E11.65 Type 2 diabetes mellitus with hyperglycemia (principal); I25.708 Atherosclerosis of coronary artery bypass graft(s), unspecified, with other forms of angina pectoris; E11.9 Type 2 diabetes mellitus without complications; R07.89 Other chest pain; E78.2 Mixed hyperlipidemia; I10 Essential (primary) hypertension
CPT/HCPCS: 83036; 99214

== ENCOUNTER 2023-10-27 17:19 | Outpatient (REF) | payer OTHER, SELFPAY ==
[2023-10-27 18:58] LABS: Amphetamine Screen Urine Not Detected (Not Detect); Barbiturates, Urine Not Detected (Not Detect); Benzodiazepines Screen Urine Not Detected (Not Detect); Buprenorphine Scr Not Detected (Not Detect); Cannabinoid Screen Urine Not Detected (Not Detect); Cocaine Screen Urine Not Detected (Not Detect); Fentanyl, urine Not Detected (Not Detect); Methadone Screen, Urine Not Detected (Not Detect); Opiate Screen Urine Not Detected (Not Detect); Oxycodone Screen Urine Not Detected (Not Detect); Phencyclidine Screen Urine Not Detected (Not Detect)
[2023-11-01 10:49] LABS: Codeine, Ur NEGATIVE; Hydrocodone, Ur NEGATIVE; Hydromorphone, Ur NEGATIVE; Morphine, Ur NEGATIVE; Norhydrocodone, Ur NEGATIVE; Noroxycodone, Ur NEGATIVE; Oxycodone, Ur NEGATIVE; Oxymorphone, Ur NEGATIVE
== END 2023-10-27 17:20 | disposition home or self-care (01) ==
LOC: HO.LNP 17:19
PROVIDERS: Visit Provider Internal Medicine
DX: R07.89 Other chest pain (principal)
CPT/HCPCS: 80307; 80365; G0480

== ENCOUNTER 2024-03-29 09:40 | Outpatient (AMB) | payer OTHER, SELFPAY ==
--- NOTE | 2024-03-29 10:15 | A.OFFPC_ITS ---
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 Accompanied by: Self / Same As Patient Allergies No Known Allergies Allergy (Verified 03/29/24 11:02) Medication List - Last Reconciled 03/29/24 by Cynthia Rizzo MD aspirin 81 mg PO DAILY 90 days atorvastatin 80 mg PO DAILY 90 days blood sugar diagnostic (FreeStyle Lite Strips) As directed test 2x daily blood-glucose meter (FreeStyle Lite Meter kit) As directed 2x day cholecalciferol (vitamin D3) 50 mcg PO DAILY 90 days dapagliflozin propanediol (Farxiga) 10 mg PO DAILY 90 days ezetimibe 10 mg PO DAILY 90 days famotidine 20 mg PO DAILY 90 days fenofibrate 54 mg PO DAILY 90 days flash glucose scanning reader ([employer] Chey 14 Day [place]) As directed furosemide 20 mg PO DAILY lancets (FreeStyle Lancets) As directed 2x daily losartan 25 mg PO DAILY metoprolol succinate ER 25 mg PO DAILY 90 days needle (disp) 18 G (BD Regular Bevel [place]) To draw up medication needle (disp) 22 G For testosterone injection weekly oxycodone 10 mg PO BID PRN 30 days semaglutide (Ozempic) 1 mg (0.75 mL) subcut QWEEK 4 weeks syringe (disposable) As directed for weekly testosterone injection syringe with needle (BD SafetyGlide Shielding Regular Bevel) As directed testosterone cypionate (Depo-Testosterone) 100 mg (0.5 mL) subcut QWEEK 4 weeks Tobacco use date assessed: 06/30/23 Dental Screening Dental Screen Date: 03/29/24 Did you have a dental visit in the last 12 months?: No Did you have a dental problem in the last 6 months where you did not have access to dental care?: No Was dental information given to patient?: Patient has dentist HPI HPI Comments History of Present Illness Details This is a 53-year-old male with diabetes mellitus type 2, hypertension, mixed hyperlipidemia and hypogonadism that comes today for follow-up on his conditions. A1c within goal. Blood pressure stable. Last LDL was not on goal and this will be repeated. Hypogonadism is treated with testosterone by Urology. Denies any chest pain or shortness on breath. [facility] Medical History Morbid obesity with BMI of 40.0-44.9, adult Erectile dysfunction associated with type 2 diabetes mellitus CAD (coronary artery disease) Diabetes mellitus Sternal pain Insomnia Severe depression Morbid obesity KHOA (obstructive sleep apnea) Smoker Long-term use of aspirin therapy Essential hypertension Surgical History Stented coronary artery History of sternectomy History of coronary artery bypass graft x 3 Family History Father Diabetes Hypertension Stroke Mother Hypertension Diabetes Paternal Grandmother Cancer Skin cancer Paternal Uncle Colon cancer Family/Other FH: mental illness Maternal Uncle Cancer Social History Household Members Other:: lives alone Housing: Apartment Are you a primary career development facilitator to a significant other at home: No Do you presently have visiting nurse or other home services: No Alcohol intake: never Patient Tobacco Use Status: Current someday Tobacco user Tobacco use type: Cigarette Cigarettes Per Day: 2 e-Cigarette/Vaping Use: Never Used Second Hand Smoke Exposure: No service: No Current occupational status: unemployed Cognitive needs: No Hearing needs: No Vision needs: Yes Questionnaire Thrive Questionnaire Date Thrive assessed: 06/30/23 CÉSAR-7 AMB Questionnaire CÉSAR-7 Date CÉSAR - 7 assessed: 06/30/23 Source: Developed by Drs. Reji Nelson, Linda Sanchez, Anders Gaming and colleagues, with an educational arnold from [employer]. Review of Systems Const All systems reviewed & are unremarkable except as noted in HPI and below Card Denies chest pain at rest, Denies chest pain with activity, Denies edema, Denies irregular heart rhythm, Denies claudication, Denies dyspnea, Denies dyspnea on exertion, Denies orthopnea, Denies paroxysmal nocturnal dyspnea and Denies slow heart rate Resp Denies cough, Denies dyspnea and Denies dyspnea on exertion Physical exam (Primary Care) Vital Signs: Last Vital Signs BP 130/82 03/29/24 10:18 BMI result Body Mass Index 39.9 BMI Assessment/Plan discussion: High BMI High, discussed plan: lifestyle, weight reduction, dietary and physical activity Tobacco/Smoking Status: Tobacco use Status Tobacco use date assessed 06/30/23 03/29/24 10:17 Patient Tobacco Use Status Current someday Tobacco 03/29/24 10:17 Tobacco use type Cigarette 03/29/24 10:17 e-Cigarette/Vaping Use Never Used 03/29/24 10:17 Are you ready to quit: No Tobacco cessation counseling provided: Yes Items discussed: QuitWorks Relapse Prevention: discussed the importance of a supportive environment, discussed negative mood or depression after quitting, weight gain after smoking is common and discussed dietary, exercise and/or lifestyle changes Number of minutes spent counselin CPT code: 98889 - 4-10 Minutes Thrive Assessment: Date of Thrive Assessment Date Thrive assessed 06/30/23 03/29/24 10:17 Resp Effort & Inspection: normal respiratory effort Auscultation: clear to auscultation bilaterally Cardio Jugular venous distension: no JVD Rate: regular rate Rhythm: regular rhythm Heart sounds: S1 normal heart sound present and S2 normal heart sound present Extrem General: Yes full ROM Office Procedures Flu Questionnaire Does the patient have a severe egg allergy?: No Does the patient have severe life threatening allergies?: No Does the patient have a fever or illness today?: No Has the patient ever had Guillain-[place] Syndrome?: No Has the patient ever had any past reaction to a flu shot?: No Immunizations Fluarix Triv [id number] (PF) 45 mcg (15 mcg x 3)/0.5 mL IM syringe Performing Provider: Cynthia Rizzo MD Performing Location: [facility] [place] [facility] Administered by: NIRU Hager on 03/29/24 11:16 Dose Route Admin Location Dispensed Lot Number Expiration Date NDC Um Nurse 0.5 mL IM Left Deltoid 0.5 mL [id number] 12/04/24 19084-056-00 [employer] VIS Given Date VIS Provided VIS Publication Date 03/29/24 Single Vaccine 21 Eligibility Eligibility Date Funding Source Not [facility] Eligible 03/29/24 Private Coding Level of Care Code Est Pt Level 4 (75280) Complex EM visit Add On G2211 Diagnoses Essential hypertension I10 Mixed hyperlipidemia E78.2 Type 2 diabetes mellitus with hyperglycemia, without long-term current use of insulin E11.65 Diabetes mellitus type: type 2 Diabetes mellitus ferry terminal supervisor insulin use: without mcc use Diabetes mellitus complication status: with hyperglycemia Hypogonadism in male E29.1 Additional Codes Vital Signs *Quality* - CPT code: 65900 - 4-10 Minutes ([id number]) Time Spent (min) 23 Assessment & Plan Assessment & Plan (1) Essential hypertension: Code(s): I10 - Essential (primary) hypertension Category: Medical Plan: Continue losartan. Blood pressure goal is equal or less than 130/80. (2) Mixed hyperlipidemia: Code(s): E78.2 - Mixed hyperlipidemia Category: Medical Plan: Continue statins and fibrates. LDL goal is less than 70. (3) Diabetes mellitus: Code(s): E11.9 - Type 2 diabetes mellitus without complications Category: Medical Qualifiers: Diabetes mellitus type: type 2 Diabetes mellitus mcc insulin use: without mcc use Diabetes mellitus complication status: with hyperglycemia Qualified Code(s): E11.65 - Type 2 diabetes mellitus with hyperglycemia Plan: Continue Ozempic. Complain that Ozempic 1 mg is giving him blood glucose of 50s and I will decrease it to 0.5 mg. (4) Hypogonadism in male: Code(s): E29.1 - Testicular hypofunction Category: Medical Plan: Continue testosterone. Follow-up with Urology. Orders: Orders Influenza [id number] Immunization Today Z23 - Encounter for immunization AMB Hemoglobin A1c Today E11.65 - Type 2 diabetes mellitus with hyperglycemia Lipid Panel Today E78.5 - Hyperlipidemia, unspecified Comprehensive [place]or[place]. Panel Fast Today E11.65 - Type 2 diabetes mellitus with hyperglycemia Microalbumin, Random (w Creat) Today R80.9 - Proteinuria, unspecified Vitamin D 25-OH Total Today E55.9 - Vitamin D deficiency, unspecified Medications: New semaglutide (Ozempic) 0.5 mg (0.736 mL) subcut QWEEK 2.944 mL 6RF 4 weeks E11.65 - Type 2 diabetes mellitus with hyperglycemia Discontinued semaglutide (Ozempic) Discontinued Reason: Patient Completed Course 1 mg (0.75 mL) subcut QWEEK 4 weeks 3 mL 0RF dapagliflozin propanediol (Farxiga) Discontinued Reason: Patient Refused 10 mg PO DAILY 90 days 90 tabs 1RF E11.9 - Type 2 diabetes mellitus without complications
[2024-03-29 10:18] VITALS: BP 130/82; BMI 39.9
== END 2024-03-29 11:16 | disposition home or self-care (01) ==
PROVIDERS: PCP Internal Medicine; Visit Provider Internal Medicine
DX: I10 Essential (primary) hypertension (principal); E78.2 Mixed hyperlipidemia; E11.65 Type 2 diabetes mellitus with hyperglycemia; E29.1 Testicular hypofunction; Z23 Encounter for immunization

== ENCOUNTER → 2024-03-29 09:40 | Outpatient (BNVA) | payer OTHER, SELFPAY | PROVIDERS: PCP Internal Medicine; Visit Provider Internal Medicine | DX: I10 Essential (primary) hypertension (principal); E78.2 Mixed hyperlipidemia; E11.65 Type 2 diabetes mellitus with hyperglycemia; E29.1 Testicular hypofunction; Z79.85 Long-term (current) use of injectable non-insulin antidiabetic drugs; Z79.899 Other long term (current) drug therapy; Z23 Encounter for immunization | CPT/HCPCS: 90471; 90656; 99212 ==

== ENCOUNTER 2024-04-12 07:09 | Outpatient (REF) | payer OTHER, SELFPAY ==
[2024-04-12 07:46] LABS: Hematocrit 41.3 % (42.0-52.0); Hemoglobin 14.2 g/dl (14.0-18.0); Mean Corpuscular HGB Conc 34.4 g/dl (31.0-36.0); Mean Corpuscular Hemoglobin 31.1 pg (27.0-33.0); Mean Corpuscular Volume 90.4 fL (80.0-98.0); Mean Platelet Volume 10.3 fL (9.4-12.4); Platelet Count 234 X10*3/uL (160-400); Red Blood Count 4.57 X10*6/uL (4.60-5.80); Red Cell Distribution Width 13.1 % (11.0-16.0); White Blood Count 8.6 X10*3/uL (4.8-10.8)
[2024-04-12 08:29] LABS: Prostate Specific Antigen 2.54 ng/mL (<0.05-4.0)
[2024-04-16 17:58] LABS: Testosterone, Total 156 ng/dL (250-1100)
== END 2024-04-12 07:10 | disposition home or self-care (01) ==
LOC: HO.LAB 07:09
PROVIDERS: PCP Internal Medicine; Visit Provider Urology
DX: E29.1 Testicular hypofunction (principal); Z12.5 Encounter for screening for malignant neoplasm of prostate
CPT/HCPCS: 36415; 84153; 84403; 85027

== ENCOUNTER → 2024-04-26 23:59 | Outpatient (BNV) | payer OTHER, SELFPAY | PROVIDERS: PCP Internal Medicine; Visit Provider Internal Medicine Cardiovascular Disease | DX: I21.11 ST elevation (STEMI) myocardial infarction involving right coronary artery (principal) | CPT/HCPCS: 92943; 92973; 93459; 99152 ==

== ENCOUNTER 2024-05-17 14:02 | Outpatient (AMB) | payer OTHER, SELFPAY ==
--- NOTE | 2024-05-17 14:03 | MHC.OFFVIS ---
Intake Visit Reasons: Follow Up-PSA/Testosterone(set) Intake Note: Patient is present for F/U PSA/TESTOSTERONE Urology Medication:NONE Antibiotic Allergy:NONE Blood Thinner:ASPIRIN Hardware Manager Required: No Allergies No Known Allergies Allergy (Verified 05/17/24 14:04) HPI Comments Details: Thomas is a very pleasant male. He is seen for the following urologic conditions - low testosterone - erectile dysfunction Telemedicine Evaluation 15 min Consultation [facility] Mariajose Video Start back on testosterone Some improvement back on injectables Wednesday injection day, lab day Continue with 0.5 mg weekly Refills provided Six-month follow-up labs Erectile dysfunction Underwent CABG age 48 2020 Failed p.r.n. medications Associated conditions hypertension, dyslipidemia - on medications Partial response to tadalafil for 5 mg daily. Did have heartburn Increase tadalafil to 10 mg, add daily Pepcid Hypogonadism 11/25 T 140 Associated conditions include KHOA and pain with opioid use Current therapy testosterone - 100 mg subcu weekly Injection day Wednesday, lab day Laboratories 01/25 T 450, Hct 42%, 07/29 T166 P 0.6, 01/26 T 295 0.6 42, 11/27 205 Wednesday, 07/31 T 300, 04/30 T 156 PSA 2.5 PFSH Medical History Morbid obesity with BMI of 40.0-44.9, adult Erectile dysfunction associated with type 2 diabetes mellitus CAD (coronary artery disease) Diabetes mellitus Sternal pain Insomnia Severe depression Morbid obesity KHOA (obstructive sleep apnea) Smoker Long-term use of aspirin therapy Essential hypertension Surgical History Stented coronary artery History of sternectomy History of coronary artery bypass graft x 3 Family History Father Diabetes Hypertension Stroke Mother Hypertension Diabetes Paternal Grandmother Cancer Skin cancer Paternal Uncle Colon cancer Family/Other FH: mental illness Maternal Uncle Cancer Social History Household Members Other:: lives alone Housing: Apartment Are you a primary hearing care professional to a significant other at home: No Do you presently have visiting nurse or other home services: No Alcohol intake: never Patient Tobacco Use Status: Current someday Tobacco user Tobacco use type: Cigarette Cigarettes Per Day: 2 e-Cigarette/Vaping Use: Never Used Second Hand Smoke Exposure: No service: No Current occupational status: unemployed Cognitive needs: No Hearing needs: No Vision needs: Yes Review of Systems Const All systems reviewed & are unremarkable except as noted in HPI and below Reports no additional complaints Resp Reports no additional complaints GI Reports no additional complaints Reports as per HPI Musc Reports no additional complaints Physical Exam Telemedicine evaluation Appropriate responses Regular breathing rate and rhythm HEENT Head: Yes normal to inspection Ears: hearing grossly normal bilaterally Eyes General: appearance normal, both eyes and all related structures Neck Neck: Yes normal visual inspection Chest Chest palpation & inspection: normal inspection of the chest Resp Effort & Inspection: normal respiratory effort and able to speak in complete sentences Telehealth Telehealth Telehealth Platform: [facility] Location of provider rendering services: practice address Location of patient: address on file Patient Identification confirmed using: Name, : Yes Telehealth method: video Patient verbally consented to treatment: Yes Patient verbally consented to billing insurance company: Yes Patient informed of any privacy concerns related to visit: Yes Minutes spent on Phone/Video with Pt.: 15 Assessment & Plan Assessment & Plan (1) Erectile dysfunction: Code(s): N52.9 - Male erectile dysfunction, unspecified Category: Medical Qualifiers: Erectile dysfunction type: post-procedural Post-procedural erectile dysfunction type: unspecified Qualified Code(s): N52.39 - Other and unspecified postprocedural erectile dysfunction (2) Hypogonadism in male: Code(s): E29.1 - Testicular hypofunction Category: Medical Plan Six-month follow-up Orders: Orders Prostate Specific Antigen 6 Months E29.1 - Testicular hypofunction Testosterone, Total 6 Months E29.1 - Testicular hypofunction Complete Blood Count no Diff 6 Months E29.1 - Testicular hypofunction Medications: Refilled testosterone cypionate (Depo-Testosterone) 100 mg (0.5 mL) subcut QWEEK 4 weeks 2 mL 5RF E29.1 - Testicular hypofunction, [id number] needle (disp) 18 G (BD Regular Bevel [place]) To draw up medication 30 ea 0RF E29.1 - Testicular hypofunction needle (disp) 22 G For testosterone injection weekly 30 ea 0RF E29.1 - Testicular hypofunction, E34.9 - Endocrine disorder, unspecified syringe (disposable) As directed for weekly testosterone injection 30 ea 0RF Patient Instructions: Imaging studies, laboratory and physical exam results were discussed and reviewed in detail. No major barriers to patient understanding were identified. An opportunity to ask questions regarding the treatment plan was provided. All questions were answered. The patient expressed understanding and agreement with the above treatment plan. The patient is aware they should contact our office by phone for worsening of their current condition or the appearance of new urologic symptoms. Compliance is encouraged with any medications and followup testing that is ordered. It is a privilege to participate in the urologic care of your patient. If you have any questions or concerns regarding treatment for the above conditions, or other urologic issues, please do not hesitate to contact me. The office telephone contact is [phone]. This note is constructed using voice recognition software. While every effort has been made to ensure accuracy cross country and track and field coach errors may have been included. Yours sincerely, Dr Delvin Lock MD, [facility] - Urology Providers of Expert, Compassionate Care for the Genitourinary System Coding Level of Care Code Tele Est Pt Level 3 (43541) Diagnoses Post-procedural erectile dysfunction, unspecified type N52.39 Erectile dysfunction type: post-procedural Post-procedural erectile dysfunction type: unspecified Hypogonadism in male E29.1
== END 2024-05-17 14:58 | disposition home or self-care (01) ==
LOC: HO.HUSH 14:02
PROVIDERS: PCP Internal Medicine; Visit Provider Urology
DX: N52.39 Other and unspecified postprocedural erectile dysfunction (principal); E29.1 Testicular hypofunction
CPT/HCPCS: 99213

== ENCOUNTER 2024-07-03 06:47 | Outpatient (REF) | payer OTHER, SELFPAY ==
[2024-07-03 08:19] LABS: Microalbum/Creatinine Ratio Ur 13.7 ug/mg cr (<30)
[2024-07-03 08:29] LABS: Vitamin D 25-OH Total 14.4 ng/mL (>30)
[2024-07-03 08:47] LABS: Alanine Aminotransferase 81 U/L (0-40); Albumin Level 4.4 g/dL (3.5-5.0); Anion Gap 15 (12-20); Aspartate Amino Transferase 51 U/L (5-37); Bilirubin Total 0.3 mg/dL (0.0-1.0); Blood Urea Nitrogen 18 mg/dL (9-16); Calcium 9.2 mg/dL (8.4-10.2); Carbon Dioxide 20 mmol/L (22-29); Chloride 107 mmol/L (96-108); Cholesterol 165 mg/dL (<200); Estimated Glomerular Filt Rate > 60; Glucose Fasting 136 mg/dL (60-99); HDL Cholesterol 32 mg/dL (>40); LDL Cholesterol Calculated 93 mg/dL (<100); Potassium 3.7 mmol/L (3.3-5.1); Sodium 140 mmol/L (135-145); Total Protein 8.2 g/dL (6.5-8.0); Triglycerides 203 mg/dL (<150)
[2024-07-03 09:23] LABS: Alkaline Phosphatase 85 U/L (39-117)
== END 2024-07-03 06:48 | disposition home or self-care (01) ==
LOC: HO.LAB 06:47
PROVIDERS: Absent Provider Internal Medicine; PCP Internal Medicine; Visit Provider Urology
DX: E11.65 Type 2 diabetes mellitus with hyperglycemia (principal); R80.9 Proteinuria, unspecified; E55.9 Vitamin D deficiency, unspecified; E78.5 Hyperlipidemia, unspecified
CPT/HCPCS: 36415; 80053; 80061; 82043; 82306; 82570

== ENCOUNTER → 2024-07-04 07:24 | Outpatient (BNVA) | payer OTHER, SELFPAY | PROVIDERS: PCP Internal Medicine; Visit Provider Internal Medicine | DX: Z00.00 Encounter for general adult medical examination without abnormal findings (principal); E11.65 Type 2 diabetes mellitus with hyperglycemia; F51.01 Primary insomnia; E66.01 Morbid (severe) obesity due to excess calories; Z68.41 Body mass index [BMI] 40.0-44.9, adult; Z71.3 Dietary counseling and surveillance | CPT/HCPCS: 96127; 99212; 99396 ==

== ENCOUNTER 2024-11-01 14:47 | Outpatient (AMB) | payer OTHER, SELFPAY ==
--- NOTE | 2024-11-01 15:01 | A.OFFPC_ITS ---
Vital Signs 11/01/24 15:03 Height 5 ft 11 in Weight 287 lb BMI 40.0 BP 132/80 Blood Pressure Location Lt brachial Position Sitting Intake Visit Reasons: bp,dm,depression Intake Note: Patient here for a follow up BP, DM, Depression Occupational Therapist Required: No Accompanied by: Self / Same As Patient Allergies No Known Allergies Allergy (Verified 11/01/24 15:29) Medication List - Last Reconciled 11/01/24 by Cynthia Rizzo MD atorvastatin 80 mg PO DAILY 90 days blood sugar diagnostic (FreeStyle Lite Strips) As directed test 2x daily blood-glucose meter (FreeStyle Lite Meter kit) As directed 2x day cholecalciferol (vitamin D3) 50 mcg PO DAILY 90 days clopidogrel (Plavix) 75 mg PO DAILY ezetimibe 10 mg PO DAILY 90 days famotidine 20 mg PO DAILY 90 days fenofibrate 54 mg PO DAILY 90 days flash glucose scanning reader (TagitoStyle Chey 14 Day [place]) As directed furosemide 20 mg PO DAILY lancets (TagitoStyle Lancets) As directed 2x daily losartan 25 mg PO DAILY metoprolol succinate ER 25 mg PO DAILY 90 days naproxen 500 mg PO BID 7 days needle (disp) 18 G (BD Regular Bevel [place]) To draw up medication needle (disp) 22 G For testosterone injection weekly oxycodone 10 mg PO Q6H PRN 30 days semaglutide (Ozempic) 0.5 mg (0.736 mL) subcut QWEEK 4 weeks syringe (disposable) As directed for weekly testosterone injection syringe with needle (BD SafetyGlide Shielding Regular [place]vel) As directed testosterone cypionate (Depo-Testosterone) 100 mg (0.5 mL) subcut QWEEK 4 weeks zolpidem 10 mg PO BEDTIME PRN 30 days Tobacco use date assessed: 07/04/24 Dental Screening Dental Screen Date: 07/04/24 HPI HPI Comments History of Present Illness Details The patient is a 54-year-old male presenting with management concerns related to chronic conditions and right elbow pain following a previous proc edure. The patient has a history of hypertension, hyperlipidemia, and hyperglycemia. Current management includes atorvastatin, Plavix, ezetimibe, losartan, metoprolol, and Ozempic. The patient reports a slightly elevated blood sugar level of 7.7, and laboratory tests have been advised for cholesterol monitoring. The patient denies medication allergies. Additionally, the patient reports experiencing anxiety and depression, particularly exacerbated after undergoing a right elbow procedure. This procedure involved manipulation under anesthesia to enhance movement; however, the patient continues to experience restricted motion, unable to fully flex or extend the elbow. This issue stems from a fall in April of the previous year, resulting in an injury that necessitated surgical intervention. The patient describes the surgical piece as too large, creating pressure and limiting movement. The patient utilizes oxycodone, especially when attending physical therapy sessions, which are currently suspended. I was prescribing oxycodone and he has a pain management contract with me. He will have to let me know next time if this happens. He will need to wait up until oxycodone prescribed by someone else are done. He is morbidly obese and was advised to do diet and exercise. [facility] Medical History (Updated 11/01/24 @ 16:26 by Cynthia Rizzo MD) Morbid obesity with BMI of 40.0-44.9, adult Erectile dysfunction associated with type 2 diabetes mellitus CAD (coronary artery disease) Diabetes mellitus Sternal pain Insomnia Severe depression Morbid obesity KHOA (obstructive sleep apnea) Smoker Long-term use of aspirin therapy Essential hypertension Surgical History Stented coronary artery History of sternectomy History of coronary artery bypass graft x 3 Family History Father Diabetes Hypertension Stroke CAD (coronary artery disease) Mother Hypertension Diabetes Paternal Grandmother Cancer Skin cancer Paternal Uncle Colon cancer Family/Other FH: mental illness Maternal Uncle Cancer Social History Household Members Other:: lives alone Housing: Apartment Are you a primary hospice patient care secretary to a significant other at home: No Do you presently have visiting nurse or other home services: No Alcohol intake: never Patient Tobacco Use Status: Current someday Tobacco user Tobacco use type: Cigarette Cigarettes Per Day: 2 e-Cigarette/Vaping Use: Never Used Second Hand Smoke Exposure: No service: No Current occupational status: unemployed Cognitive needs: No Hearing needs: No Vision needs: Yes Questionnaire PHQ-9 Over the last 2 weeks, how often have you been bothered by any of the following problems? 1. Little interest or pleasure in doing things: not at all 2. Feeling down, depressed, or hopeless: several days 3. Trouble falling or staying asleep, or sleeping too much: several days 4. Feeling tired or having little energy: several days 5. Poor appetite or overeating: several days 6. Feeling bad about yourself - or that you are a failure or have let yourself or your family down: more than half the days 7. Trouble concentrating on things, such as reading the newspaper or watching television: several days 8. Moving or speaking so slowly that other people could have noticed. Or the opposite - being so fidgety or restless that you have been moving around a lot more than usual: not at all 9. Thoughts that you would be better off or of hurting yourself in some way: several days Total score: 8 Depression Screening Interpretation: Positive Depression Screening Follow-up: Existing condition, In treatment and Follow-up Visit Requested Depression Screening Done: Yes 69395 - PHQ-9 Billing: Yes Source: Developed by Drs. Reji Nelson, Linda Sanchez, Anders Gaming and colleagues, with an educational arnold from [employer]. Thrive Questionnaire Date Thrive assessed: 11/01/24 I am a: Patient What is your living situation today?: I choose not to answer this question Within the past 12 months, did the food you bought not last and you didn't have the money to get more?: I choose not to answer this question Within the past 12 months, did you worry whether your food would run out before you got money to buy more?: I choose not to answer this question Do you have trouble paying for medicines?: I choose not to answer this question Do you have trouble getting transportation to medical appointments?: I choose not to answer this question Do you have trouble paying your heating and electricity bill?: I choose not to answer this question Do you have trouble taking care of your child, family member or friend?: I choose not to answer this question Do you have trouble with day-to-day activities such as bathing, preparing meals, shopping, managing finances, etc.?: I choose not to answer this question Are you currently unemployed and looking for a job?: I choose not to answer this question Are you interested in more education?: I choose not to answer this question Please select the resources that you would like help with: None Currently or been in a relationship where the following occur: I choose not to answer THRIVE Score: 0 CÉSAR-7 AMB Questionnaire CÉSAR-7 Date CÉSAR - 7 assessed: 07/04/24 Source: Developed by Drs. Reji Nelson, Linda Sanchez, Anders Gaming and colleagues, with an educational arnold from [employer]. Review of Systems Const All systems reviewed & are unremarkable except as noted in HPI and below Card Denies chest pain at rest, Denies chest pain with activity, Denies edema, Denies irregular heart rhythm, Denies claudication, Denies dyspnea, Denies dyspnea on exertion, Denies orthopnea, Denies paroxysmal nocturnal dyspnea and Denies slow heart rate Resp Denies cough, Denies dyspnea and Denies dyspnea on exertion GI Denies abdominal pain, Denies change in bowel habits, Denies excessive flatus, Denies nausea and Denies vomiting Neuro Denies behavioral changes and Denies lack of coordination Psych Denies behavioral changes Physical exam (Primary Care) Vital Signs: Last Vital Signs BP 132/80 11/01/24 15:03 BMI result Body Mass Index 40.0 Tobacco/Smoking Status: Tobacco use Status Tobacco use date assessed 07/04/24 11/01/24 15:13 Patient Tobacco Use Status Current someday Tobacco 11/01/24 15:13 Tobacco use type Cigarette 11/01/24 15:13 e-Cigarette/Vaping Use Never Used 11/01/24 15:13 PHQ-9: PHQ-9 Score PHQ-9: Total score 8 11/01/24 15:30 Depression Screening Interpretation: Positive Depression Screening Follow-up: Existing condition, In treatment and Follow-up Visit Requested Thrive Assessment: Date of Thrive Assessment Date Thrive assessed 11/01/24 11/01/24 15:13 Currently or been in a relationship where the following occur: I choose not to answer Resp Effort & Inspection: normal respiratory effort Auscultation: clear to auscultation bilaterally Cardio Jugular venous distension: no JVD Rate: regular rate Rhythm: regular rhythm Heart sounds: S1 normal heart sound present and S2 normal heart sound present Extrem General: Yes full ROM Results AMB Hemoglobin A1c AMB Hemoglobin A1c 7.7 % Last Edit by NIRU Hager on 11/01/24 15:1 6 Results Reviewed Results Reviewed: Laboratory Last Values Hgb A1c (Clinic) 7.7 % (4.0-6.0) H 11/01/24 15:00 Coding Level of Care Code Est Pt Level 4 (90914) Complex EM visit Add On G2211 Diagnoses Type 2 diabetes mellitus with hyperglycemia, without long-term current use of insulin E11.65 Diabetes mellitus type: type 2 Diabetes mellitus long filler cigar roller machine insulin use: without long filler cigar roller machine use Diabetes mellitus complication status: with hyperglycemia Morbid obesity with BMI of 40.0-44.9, adult E66.01; Z68.41 Essential hypertension I10 Mixed hyperlipidemia E78.2 Right elbow pain M25.521 Additional Codes PHQ-9 - 69065 - PHQ-9 Billing: Yes ([id number]) Time Spent (min) 23 Assessment & Plan Assessment & Plan (1) Diabetes mellitus: Code(s): E11.9 - Type 2 diabetes mellitus without complications Category: Medical Qualifiers: Diabetes mellitus type: type 2 Diabetes mellitus long filler cigar roller machine insulin use: without half-way use Diabetes mellitus complication status: with hyperglycemia Qualified Code(s): E11.65 - Type 2 diabetes mellitus with hyperglycemia (2) Morbid obesity with BMI of 40.0-44.9, adult: Code(s): E66.01 - Morbid (severe) obesity due to excess calories; Z68.41 - Body mass index [BMI] 40.0-44.9, adult Category: Medical (3) Essential hypertension: Code(s): I10 - Essential (primary) hypertension Category: Medical (4) Mixed hyperlipidemia: Code(s): E78.2 - Mixed hyperlipidemia Category: Medical (5) Right elbow pain: Code(s): M25.521 - Pain in right elbow Category: Medical Plan The patient will continue current medication regimens for hypertension, hyperlipidemia, and hyperglycemia, with potential adjustment of Ozempic dosage for better glycemic control. Laboratory tests will be completed to evaluate cholesterol. The necessity for surgical revision of the right elbow joint will be considered due to implant issues. Oxycodone will be used for pain management during physical therapy. Anxiety and depression symptoms will be monitored, with potential for further therapeutic intervention. Follow-up is recommended to reassess and adjust treatment plans. Patient was informed and verbally consented to the use of an ambient scribe for clinic note documentation during this visit. During the visit, I discussed with the patient the management of his chronic conditions, including the importance of maintaining current medications and the possibility of adjusting Ozempic for better blood sugar control. The need for laboratory tests to monitor cholesterol was emphasized, and the patient's current blood sugar level was reviewed. We discussed the ongoing issues with the right elbow, including the potential need for surgical revision due to implant sizing. Pain management with oxycodone was reviewed, particularly in relation to physical therapy needs. Anxiety and depression were acknowledged, with a plan for ongoing monitoring and potential intervention. Follow-up appointments were encouraged to reassess all conditions and make necessary treatment adjustments. Orders: Orders AMB Hemoglobin A1c Today E11.65 - Type 2 diabetes mellitus with hyperglycemia Medications: New semaglutide (Ozempic) 1 mg (0.75 mL) subcut QWEEK 3 mL 0RF 4 weeks E11.65 - Type 2 diabetes mellitus with hyperglycemia Discontinued semaglutide (Ozempic) Discontinued Reason: Patient Completed Course 0.5 mg (0.736 mL) subcut QWEEK 4 weeks 2.944 mL 6RF E11.65 - Type 2 diabetes mellitus with hyperglycemia Patient Instructions: - Continue taking all prescribed medications as directed. - Schedule and complete laboratory tests for cholesterol monitoring. - Monitor blood sugar levels and report any significant changes. - Use oxycodone as needed for pain, especially during physical therapy. - Report any worsening symptoms of anxiety or depression. - Follow up with the clinic as advised for reassessment and adjustment of treatment plans.
[2024-11-01 15:03] VITALS: BP 132/80; BMI 40.0
--- OUTSIDE RECORDS SUMMARY | 2024-11-01 15:35 | XMS_ITS | Data Portability ---
Author Organization [facility], [facility] Address [address] [place] [address] Care Team Providers Care Residential Child Care Counselor Name Role Phone REBECCA SAUCEDA Primary Care Provider [phone] Assessment Encounter Date Assessment Date Assessment LastModified by Organization Details LastModified Time 09/29/2024 09/29/2024 Assessment: Patient presents with fair sebastián to rx. Pain at end range elbow flex, ext slightly decreased from last session. Fatigued quickly. Sig challenged c initiation of bicep curls, fatiguing quickly and c mod muscle quiver present. Plan: Continue POC. Not available 09/29/2024 15:09:03 10/04/2024 10/04/2024 Assessment: Patient presents with fair sebastián to progressions as charted. Responded well to initiation of cable rows. Pain at end range elbow flex and ext. clicking present c elbow flexion, prominent c bicep curls. Plan: Continue POC. Not available 10/04/2024 16:49:58 10/06/2024 10/06/2024 Assessment: Patient presents with good sebastián to progressions as charted. Pain at end range elbow flex and ext, no improvement c PROM today, firm end feel in all planes. Plan: Continue POC. Not available 10/06/2024 16:34:02 10/11/2024 10/11/2024 Assessment: Patient has decreased flexion ROM but improved extension stretching. The end range pain has increased with flexion ROM. He reports good compliance with home program. He is scheduled to f/u with 10-12-24 to discuss POC. Plan: Continue POC. [email or web address] Not available 10/11/2024 13:32:48 10/12/2024 10/12/2024 Findings and Studies were discussed with the patient and questions answered to their satisfaction PLAN SUMMARY: - Can resume gym activities, avoiding heavy lifting - Pause physical therapy for 4-6 weeks - Avoid exercises bending elbow down with weight while upper extremity is elevated - Hydrocodone prescribed for 10-14 days, maximum daily use - Use upper extremity for light activities that don't cause discomfort - Discussed potential future downsizing of radial head replacement - Follow-up in 4-6 weeks RIGHT ELBOW PAIN AND STIFFNESS: - Discussed potential future downsizing of the radial head, involving surgically removing the current radial head replacement and inserting a shorter, smaller one to potentially allow better elbow mobility. - Mentioned elbow replacement as a possible option, but not typically recommended for high-demand patients due to limited durability. - Pause PT for 4-6 weeks. - Use upper extremity for light activities that don't cause discomfort. - Can go to the gym but avoid heavy lifting. - Avoid exercises that involve bending the elbow down with weight while upper extremity is elevated. SENIOR CARE USE OF OPIATE ANALGESIC: - Hydrocodone for 10-14 days, daily at most. Would not plan on refilling. FOLLOW-UP: - Follow up in 4-6 weeks. Potential downsizing of radial head if cannot find any other means to improve function. The patient leg size and length appear to be well matched, nor based on the side of his existing radial head but current symptoms would suggest some component of overstuffing respiratory Patient may call or return sooner for any additional questions or changes in condition. Portions of this note were generated by [employer]. Errors of sewer repairer may occur- please feel free to reach out with any corrections or clarifications you may require. Time spent face to face with patient: 14 minutes Not available 10/15/2024 21:02:05 Plan of Treatment Reminders Order Date Submit Date Provider Last Modified By Organization Details Last Modified Time Details Appointments POST OP 15 2024 10:15A Mickie Garcia MD Not available Not available Not available Lab None recorded . Referral None recorded . Procedures None recorded . Surgeries None recorded . Imaging XR, elbow, 3 or more view - 310 rt elbow 3v 2024 025 [facility], [address], [place], [address], 10/17/2024 08:45:40 Medication Orders oxycodon e 5 mg tablet 2024 025 [id number], [address] [place], [address], 10/12/2024 11:41:43 Patient TargetsNo targets recorded. Patient InstructionsNo instructions recorded. Reason for Referral None Reported. Results Created Date Observation Date Name Description Value Unit Range Abnormal Flag Note LastModifiedBy Organization Detail LastModifiedTime 10/13/1910/12/2024 XR, elbow , 3 or more view [email or web address] ?Encry pted=s hAaTro YD8dLq bEUv6g %2BXZw aYqtaq 0bqfl% 2Fg9IQ a4ajBk vP9nXo QUaueC m3YtLR FvZlgJ JJ8mAn HZtai3 5x4927 AC0Kla nqAUKa kKiQtr MwF INTERFACE [facility] [address] [address], [place], [address], 10/12/2024 10:47:36 10/13/19 25 10/12/2024 XR, elbow , 3 or more view [email or web address] ?Encry pted=s hAaTro YD8dLq bEUv6g %2BXZw aYqtaq 0bqfl% 2Fg9IQ a4ajBk vP9nXo QUaueC m3YtLR FvZlgJ JJ8mAn HZtai3 5a8993 AC0Kla nqAUKa kKiQtr MwF INTERFACE [facility] [address] [facility] [address], [address], 10/12/2024 10:47:37 Result Notes None recorded. Problems Name Problem SNOMED Code Status Onset Date Resolution Date Notes Provider Name and Address Organization Details Recorded Time Pain of elbow region 32724409 Active 2023 GHASSAN santoyo [place] - [facility] 14:06:36 Closed fracture of head of radius 20462222 Active 2024 Leobardo Hicks, DPT [address], [place], [address], [facility] 11:49:46 Contracture of right elbow joint 1983271103406 00 Active 2024 Lucian Garcia MD [address], [place], [address], [facility] 11:36:21 Closed fracture of right elbow 0737071679792 9103 Active 2024 Lucian Garcia MD [address], [place], [address], [facility] 11:36:24 Problem Notes None recorded. Procedures Surgical History Date Name Laterality Status Provider Name and Address Organization Details Recorded Time 08/12/19 11329 Therapeutic Exercise (1:1) completed Agatha Gaming PTA [address], [place], [address], [facility] 08/11/2024 14:20:29 08/12/19 25 38570: Hot or Cold Pack completed Agatha Gaming PTA [address], [place], [address], [facility] 08/09/2024 15:55:12 08/12/19 25 26612: Manual therapy completed Agatha Gaming PTA [address], [place], [address], [facility] 08/11/2024 14:20:31 08/10/19 25 34789 Therapeutic Exercise (1:1) completed Agatha Gaming PTA [address], [place], [address], [facility] 08/09/2024 14:32:24 08/10/19 25 74293: Hot or Cold Pack completed Agatha Gaming PTA [address], [place], [address], [facility] 08/08/2024 12:04:39 08/10/19 40197: Manual therapy completed Agatha Gaming PTA [address], [place], [address], [facility] 08/09/2024 14:32:35 08/04/19 57157 Therapeutic Exercise (1:1) completed Leobardo Hicks DPT [address], [place], [address], [facility] 08/04/2024 14:13:51 08/04/19 75720: Hot or Cold Pack completed Leobardo Hicks DPT [address], [place], [address], [facility] 08/04/2024 13:54:50 08/04/19 97671: Manual therapy completed Leobardo Hicks DPT [address], [place], [address], [facility] 08/03/2024 11:39:32 08/02/19 92875 Therapeutic Exercise (1:1) completed Leobardo Hicks DPT [address], [place], [address], [facility] 08/02/2024 14:01:22 08/02/19 17176: Hot or Cold Pack completed Leobardo Hicks DPT [address], [place], [address], [facility] 08/02/2024 14:01:20 08/02/19 22480: Manual therapy completed Leobardo Hicks DPT [address], [place], [address], [facility] 08/01/2024 15:18:03 07/28/19 02052 Therapeutic Exercise (1:1) cancelled Agatha Gaming PTA [address], [place], [address], [facility] 07/27/2024 18:26:07 07/28/19 25 75330: Hot or Cold Pack cancelled Agatha Gaming PRE KINDERGARTEN TEACHER [address], [place], [address], [facility] 07/27/2024 18:26:07 07/28/19 25 42884: Manual therapy cancelled Agatha Gaming PTA [address], [place], [address], [facility] 07/27/2024 18:26:07 07/26/19 25 24988 Therapeutic Exercise (1:1) completed Leobardo Hicks DPT [address], [place], [address], [facility] 07/26/2024 09:07:54 07/26/19 38777: Hot or Cold Pack completed Leobardo Hicks DPT [address], [place], [address], [facility] 07/26/2024 09:07:54 07/26/19 25971: Manual therapy completed Leobardo Hicks DPT [address], [place], [address], [facility] 07/26/2024 09:07:54 07/21/19 77299 Therapeutic Exercise (1:1) completed Leobardo Hicks DPT [address], [place], [address], [facility] 07/21/2024 07:48:22 07/21/19 25 28796: Hot or Cold Pack completed Leobardo Hicks DPT [address], [place], [address], [facility] 07/21/2024 15:57:10 07/21/19 25 05396: Manual therapy completed Leobardo Hicks DPT [address], [place], [address], [facility] 07/21/2024 07:48:22 07/19/19 31116 Therapeutic Exercise (1:1) completed Leobardo Hicks DPT [address], [place], [address], [facility] 07/19/2024 15:21:59 07/19/19 07653: Manual therapy completed Leobardo Hicks DPT [address], [place], [address], [facility] 07/19/2024 15:22:05 07/13/19 91039 Therapeutic Exercise (1:1) completed Leobardo Hicks DPT [address], [place], [address], [facility] 07/13/2024 11:53:30 07/13/19 73775: Low complexity PT Eval completed Leobardo Hicks DPT [address], [place], [address], [facility] 07/13/2024 11:54:59 05/01/20 24 Splint_Long Arm Fiberglass_11+ completed PAYTON CALL [facility] 05/01/2024 13:10:55 04/26/20 24 Splint_Long Arm Fiberglass_11+ completed Clementine Rasmussen [facility] 04/26/2024 12:03:35 Imaging Results None recorded. Procedure Notes None recorded. Medical Equipment None Reported. Allergies Allergen ID Allergen Name Allergen Category Reaction Reaction Severity Criticality Documentation Date Start Date Code Code System Note Provider Name and Address Organization Details Recorded Time 941835 adhesive environme nt,medica tion Not available Not available Not available 07/06/2024 22021 UNK MONTY FERNÁNDEZOUR [facility] 09:10:33 023616 banana extract food,medi cation Not available Not available Not available 07/06/2024 75009 9 RxNorm MONTY ROBINSYMOUR [facility] 5 09:10:39 868488 kiwi fruit extract food Not available Not available Not available 07/06/2024 83397 01 RxNorm MONTY santoyo [facility] 5 09:10:48 171844 avocado allergeni c extract food Not available Not available Not available 07/06/2024 69384 2 RxNorm MONTY BANKS [facility] 5 09:10:55 Medications Name Sig Start Date Stop Date Status Note LastModified by Organization Details LastModified Time atorvastati n 80 mg tablet TOME GARRET TABLETA (80MG) POR V A ORAL A DIARIO 90 DAYS active Not Available Not Available No t Available metoprolol succinate ER 50 mg tablet,exte nded release 24 hr TOME 1 TABLETA POR V A ORAL TODOS LOS D active Not Available Not Available No t Available senna 8.6 mg tablet TOME DOS TABLETAS POR V A ORAL AL ACOSTARSE FOR 14 DAYS active Not Available Not Available No t Available isosorbide mononitrate ER 30 mg tablet,exte nded release 24 hr TAKE 1 TABLET BY MOUTH DAILY IN THE MORNING FOR 90 DAYS active Not Available Not Available No t Available clopidogrel 75 mg tablet SUZANNE 1 TABLETA POR LA BOCA CADA IRISH active Not Available Not Available No t Available acetaminoph en ER 650 mg tablet,exte nded release 2023 active Not Available Not Available Not Avai lable nicotine 21 mg/24 hr daily transdermal patch APLICAR 1 PARCHO CADA IRISH. REMOVER EL PARCHE NABIL ANTES active Not Available Not Available No t Available docusate sodium 100 mg capsule TOME 1 C PSULA POR V A ORAL DOS VECES AL D A FOR 14 DAYS 07/06 completed Not Available Not Available Not Available aspirin 81 mg chewable tablet TOME GARRET TABLETA POR V A ORAL TODOS LOS D active Not Available Not Available No t Available BD Regular Bevel [place] 22 gauge x 1 1/2 FOR TESTOSTER ONE INJECTION WEEKLY 06/05 completed Not Available Not Available Not Available metoprolol succinate ER 25 mg tablet,exte nded release 24 hr TOME GARRET TABLETA POR V A ORAL TODOS LOS D 07/06 completed Not Available Not Available Not Available testosteron e cypionate 200 mg/mL intramuscul ar oil 100 MG (0.5 ML) SUBCUTANE OUSLY EVERY WEEK FOR 4 WEEKS active Not Available Not Available No t Available ibuprofen 600 mg tablet 04/19 completed Not Available Not Available Not Available zolpidem 10 mg tablet active Not Available Not Available No t Available ferrous sulfate 325 mg (65 mg iron) tablet,vianey yed release SUZANNE 1 TABLETA POR LA BOCA CADA OTRO IRISH active Not Available Not Available No t Available naproxen 500 mg tablet TOME 1 TABLETA POR V A ORAL DOS VECES AL D A FOR 7 DAYS 10/12 completed Not Available Not Available Not Available oxycodone 5 mg tablet TOME 1 TABLETA POR V A ORAL TODOS LOS D CUANDO SEA NECESARIO FOR 14 DAYS active Not Available Not Available No t Available senna 06/05 completed Not Available Not Available Not Available Lovenox 07/06 completed Not Available Not Available Not Available Miralax active Not Available Not Avail able Not Available BD Luer-Mary Syringe 1 mL 06/05 completed Not Available Not Available Not Available FreeStyle Lite Strips TEST DOS VECES AL D A SEG N LO INDICADO active Not Available Not Available No t Available BD Regular Bevel [place] 18 gauge x 1 1/2 TO DRAW UP MEDICATIO N 06/05 completed Not Available Not Available Not Available oxycodone 10 mg tablet TAKE 1 TABLET (10 MG) ORALLY EVERY 6 HOURS NEEDED FOR PAIN FOR 30 DAYS. active Not Available Not Available No t Available cholecalcif nelson (vitamin D3) 50 mcg (2,000 unit) capsule TOME 1 C PSULA POR V A ORAL TODOS LOS D 07/06 completed Not Available Not Available Not Available fenofibrate 54 mg tablet TOME GARRET TABLETA POR V A ORAL TODOS LOS D active Not Available Not Available No t Available Gavilax 17 gram/dose oral powder 17 GM BY MOUTH DAILY CUANDO SEA NECESARIO FOR CONSTIPAT ION,INSTR :DISSOLVE IN 4 TO 8 OZ OF BEVERAGE 07/06 completed Not Available Not Available Not Available ticagrelor 90 mg tablet Take 1 tablet twice a day by oral route. active Not Available Not Available No t Available Farxiga 10 mg tablet TAKE 1 TABLET ORALLY DAILY FOR 90 DAYS 04/19 completed Not Available Not Available Not Available Ozempic 1 mg/dose (4 mg/3 mL) subcutaneou s pen injector 1 MG (0.75 ML) SUBCUTANE OUSLY EVERY WEEK FOR 4 WEEKS 05/15 completed Not Available Not Available Not Available Ozempic 0.25 mg or 0.5 mg (2 mg/3 mL) subcutaneou s pen injector INJECT 0.5 MG (0.736 ML) SUBCUTANE OUSLY EVERY WEEK FOR 4 WEEKS active Not Available Not Available No t Available Vitals Date Recorded Body height Body mass index (BMI) Body weight Provider Name and Address Organization Details Last Updated DateTime 10/12/2024 180.34 cm 39.5 kg/m2 311264.64 g MONTY BANKS [facility] 10/12/2024 10:10:32 Social History Question Answer Notes LastModified by [employer] Details LastModified Time Tobacco Smoking Status Current Every Day Smoker GHASSAN santoyo [facility] 04/19/2024 13:59:48 What Is Your Relationship Status? Single Information not available 04/19/2024 How Much Tobacco Do You Smoke? 0.25 PPD Information not available 04/19/2024 Sex: Unknown Functional Status Question Answer Note LastModified by [employer] Details LastModified Time Do you use any illicit or recreational drugs? No Information not available 04/19/2024 Do you or have you ever used any other forms of tobacco or nicotine? No Information not available 04/19/2024 What is your level of alcohol consumption? None Information not available 04/19/2024 Mental Status None recorded. Family History Nothing Reported. Medical History Condition Response Allergies/Hayfever N Coronary Artery Disease N Anxiety/Depression Y Breathing or lung disorders N Emphysema N Nerve Disorders N Thyroid Problems N COPD N Pacemaker N Anemia N Kidney/Bladder Problems N Vascular Disease N Heart Trouble Y Heart Attack ([place]) Y Gastrointestinal Disease N Cholesterol Y Diabetes Y Autoimmune disease N Bleeding Disorder N Inflammatory Joint disease N Orthotics N Arthritis N Seizures/Epilepsy N Blood Clot Y AIDS/HIV N Congestive Heart Failure (CHF) N Acid Reflux (GERD) N Cancer N Stroke N Asthma N Circulation Problems N Peripheral Vascular Disease N Sleep Apnea N Hepatitis N Heart Disease N Rheumatoid Arthritis N Arrhythmia N Pulmonary Embolism N Headaches N Fibromyalgia N Hypertension Y Osteoporosis N Past Encounters Encounter ID Performer Location Encounter Start Date Encounter Closed Date Diagnosis/Indication Diagnosis SNOMED-CT Code Diagnosis ICD10 Code Diagnosis Note [id number] MARY ELLEN Laughlin [address] [place] [address] 04/19/2024 13:18:21 05/15/2024 11:42:24 Pain of elbow region 15353389 M25.521 Dislocatio n of elbow joint 634581049 S53.104A Closed fra cture of coronoid process of ulna 72860294 S52.041A Closed fra cture of head of radius 35007251 S52.121A [id number] MARY ELLEN Laughlin [address] [place] [address] 04/26/2024 10:47:53 04/26/2024 11:58:34 Dislocation of elbow joint 067355401 S53.104A Pain of elbow region 743 05246 M25.905 [id number] MD John [facility] [address] [place] [address] 05/01/2024 12:45:01 05/01/2024 13:11:46 Surgical follow-up 705339011 Z09 [id number] MARY ELLEN Mcdermott [address] [place] [address] 05/09/2024 09:58:04 06/10/2024 08:24:37 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 9392421368 8331073 Z98.236 [id number] MD John Camarillo [address] [place] [place] [address] 05/15/2024 12:45:16 06/02/2024 15:31:47 [id number] MD John Camarillo 3[address] [place] [address] 06/05/2024 09:37:25 06/22/2024 11:32:38 [id number] MD [facility] Cam[facility] [address] [place] [address] 07/06/2024 09:05:33 07/25/2024 12:20:09 Closed fracture of head of radius 02995749 S52.121A [id number] Leobardo Hicks DPT [facility] [address] [place] [address] 07/13/2024 10:46:48 07/13/2024 11:55:51 Closed fracture of head of radius 97045933 S52.121D [id number] Leobardo Hicks DPT [facility] [address] [place] [address] 07/19/2024 15:06:14 07/20/2024 08:25:41 Closed fracture of head of radius 66152480 S52.121D [id number] Leobardo Hicks DPT [facility] [address] [place] [address] 07/21/2024 15:03:21 07/24/2024 13:06:23 Closed fracture of head of radius 32687324 S52.121D [id number] Leobardo Hicks DPT [facility] [address] [facility] [place] [address] 07/26/2024 14:08:41 07/26/2024 15:18:36 Closed fracture of head of radius 73659439 S52.121D [id number] Leobardo Hicks DPT [facility] [address] [facility] [place] [address] 08/02/2024 13:13:01 08/02/2024 14:11:25 Closed fracture of head of radius 35855516 S52.121D [id number] Leobardo Hicks DPT [facility] [address] [facility] [place] [address] 08/04/2024 11:50:54 08/04/2024 14:21:08 Closed fracture of head of radius 66304894 S52.121D [id number] Agatha Gaming, PRE [employer]ER[employer]ART[employer] TEACHER [facility] [address] [place] [address] 08/09/2024 13:08:28 08/09/2024 14:43:36 Closed fracture of head of radius 44193310 S52.121D [id number] Agatha Gaming, PRE [employer]ER[employer] TEACHER [facility] [address] [place], [place] 9 08/11/2024 12:58:51 08/11/2024 14:21:34 Closed fracture of head of radius 08081603 S52.121D [id number] Agatha Gaming, PRE [employer]ER[employer] TE[employer]ER [facility] [address] [place], [place] 9 08/16/2024 13:12:10 08/16/2024 14:39:58 Closed fracture of head of radius 92596150 S52.121D [id number] MD [facility] 3[address] floor [address] [place] [address] 08/17/2024 09:15:34 09/01/2024 08:30:47 Closed fracture of head of radius 85759063 S52.121A [id number] Agatha Gaming, PRE [employer]ERGART[employer] TEACHER [facility] [address] [place], [place] 9 08/18/2024 13:08:27 08/18/2024 14:33:52 Closed fracture of head of radius 99819171 S52.121D [id number] Leobardo Hicks, ALPHONSO [facility] [address] [place], [place] 9 08/23/2024 13:08:29 08/23/2024 14:36:34 Closed fracture of head of radius 07464372 S52.121D [id number] Lorrie ybarra, PAFarihaC [facility] [address] [place] [address] 09/11/2024 10:01:13 09/29/2024 13:57:06 Closed fracture of head of radius 30059534 S52.121D Flexion co ntracture - elbow 758475798 M24.924 [id number] Leobardo Hicks, DPT [facility] [address] [place] [address] 09/19/2024 13:09:24 09/19/2024 15:08:46 Closed fracture of head of radius 47483793 S52.121D [id number] Agatha Gaming, PRE [employer]ERGART[employer] TEACHER [facility] [address] [place], [place] 9 09/27/2024 12:53:01 09/27/2024 16:12:10 Closed fracture of head of radius 97285615 S52.121D [id number] Agatha Gaming, PRE KINDERGARTEN TEACHER [facility] [address] [place], [place] 9 09/29/2024 12:56:18 09/29/2024 15:10:22 Closed fracture of head of radius [id number] S52.121D [id number] Agatha Gaming, PRE KINDERGARTEN TEACHER [facility] [address] [place], [place] 9 10/04/2024 14:56:29 10/04/2024 17:01:33 Closed fracture of head of radius 43597173 S52.121D [id number] Agatha Gaming, PRE KINDERGARTEN TEACHER [facility] [address] [place], [place] 9 10/06/2024 14:25:21 10/06/2024 16:34:52 Closed fracture of head of radius [id number] S52.121D [id number] Leobardo Hicks, DPT [facility] [address] [place], [place] 9 10/11/2024 12:48:44 10/11/2024 13:33:06 Closed fracture of head of radius [id number] S52.121D [id number] MD [facility] Cam[facility] 3[address] floor [address] [place] [address] 10/12/2024 10:07:28 10/17/2024 08:45:40 Closed fracture of right elbow [id number] S42.401A Contractur e of right elbow joint [id number] M24.521 Health Concerns Section Related Observation LastModified by Organization Detai ls LastModified Time None Recorded Concern Status LastModified by Organization Details LastModified Time None Recorded Advance Directives Directive None Recorded Payers Encounter Date Sequence Insurance Name Policy Number Policy Martell Covered Member ID Martell Member ID Guarantor Name 09/29/2024 1 [facility] - DOS ON OR AFTER 2022 - ONE CARE (MEDICARE REPLACEMENT/ADV ANTAGE - HMO) Thomas Umanzor [id number] Thomas Umanzor 10/04/2024 1 [facility] - DOS ON OR AFTER 2022 - ONE CARE (MEDICARE REPLACEMENT/ADV ANTAGE - HMO) Thomas Umanzor [id number] Thomas Umanzor 10/06/2024 1 [facility] - DOS ON OR AFTER 2022 - ONE CARE (MEDICARE REPLACEMENT/ADV ANTAGE - HMO) Thomas Umanzor [id number] Thomas Umanzor 10/11/2024 1 [facility] - DOS ON OR AFTER 2022 - ONE CARE (MEDICARE REPLACEMENT/ADV ANTAGE - HMO) Thomas Umanzor [id number] Thomas Umanzor 10/12/2024 1 [facility] - DOS ON OR AFTER 2022 - ONE CARE (MEDICARE REPLACEMENT/ADV ANTAGE - HMO) Thomas Umanzor [id number] Thomas Umanzor Notes Date Note Type Note Provider Name and Address Organization Details Recorded Time 09/29/2024 text/html Pt reports feeli ng about the same as last time. Eager to return to fishing. Pt 30min early Agatha Gaming, PRE [employer] [address], [place], [address], [facility] 09/29/2024 15:10:16 10/04/2024 text/html I only get pain when I bend my elbow. States that he didn't know to take the sling off the day after the manipulation, so he had it on for 3 days, and feels that his elbow is back to being stuck in the same position as before. I feel like it's getting worse instead of better. Agatha Gaming, PRE [employer] [address], [place], [address], [facility] 10/04/2024 16:56:57 10/06/2024 text/html Pt cont to have pain with elbow flexion. Agatha Gaming, PRE [employer] [address], [place], [address], [facility] 10/06/2024 16:34:49 10/11/2024 text/html Pt states his el bow is getting worse and it is getting more difficult to bend his elbow. Leobardo Hicks, DPT [address], [place], [address], [facility] 10/11/2024 13:33:00 10/12/2024 text/html CHIEF COMPLAINT: - Right elbow pain and limited range of motion HPI: Mr. Umanzor presents for follow-up after a right radial head replacement and subsequent manipulation under anesthesia of the right elbow on 08/25/2024. He reports ongoing pain and limited range of motion in his right elbow. Pain is primarily on the ulnar side of the elbow, particularly when bending it. He describes the pain as severe when bending the elbow. Tightness is noted over the radial head area when extending the elbow. He has been attending PT, but reports worsening pain, especially on the back of the elbow. Initially, therapy provided some relief, but pain has been progressively worsening. During therapy sessions, he experiences significant discomfort, particularly when attempting to bend his elbow, describing it as increased pressure and severe pain. Pain typically subsides about 20 minutes after therapy. Lifting is not particularly problematic, but bending the elbow, especially when the arm is elevated and flexing down with weight, causes discomfort. He is currently taking hydrocodone for pain management, sometimes once or twice daily. He expresses frustration with his limited mobility and desire to resume activities. He denies any new diagnoses or changes in his cardiac condition. MEDICATIONS: - Hydrocodone: Once or twice daily as needed for pain - Tramadol: Previously tried, patient reports it was not effective SURGICAL HISTORY: - Cardiac catheterization and bypass - Right radial head replacement: 04/21/2024 - Manipulation under anesthesia of right elbow: 08/25/2024 PREVIOUS TREATMENTS: - PT for the right elbow: Initially provided some improvement but has been causing increased pain recently [Allergies]: - Adhesive - Avocado - Banana - Jaja Garcia MD [address] [place] [address] [address], [place], [address], [facility] 10/15/2024 21:02:32
== END 2024-11-01 15:42 | disposition home or self-care (01) ==
LOC: HO.HMCH 14:48
PROVIDERS: PCP Internal Medicine; Visit Provider Internal Medicine
DX: E11.65 Type 2 diabetes mellitus with hyperglycemia (principal); E66.01 Morbid (severe) obesity due to excess calories; Z68.41 Body mass index [BMI] 40.0-44.9, adult; I10 Essential (primary) hypertension; E78.2 Mixed hyperlipidemia; M25.521 Pain in right elbow

== ENCOUNTER → 2024-11-01 14:47 | Outpatient (BNVA) | payer OTHER, SELFPAY | PROVIDERS: PCP Internal Medicine; Visit Provider Internal Medicine | DX: E11.65 Type 2 diabetes mellitus with hyperglycemia (principal); E66.01 Morbid (severe) obesity due to excess calories; Z68.41 Body mass index [BMI] 40.0-44.9, adult; I10 Essential (primary) hypertension; E78.2 Mixed hyperlipidemia; M25.521 Pain in right elbow; Z79.02 Long term (current) use of antithrombotics/antiplatelets; Z79.899 Other long term (current) drug therapy | CPT/HCPCS: 83036; 96127; 99212 ==

== ENCOUNTER 2024-12-04 07:18 | Outpatient (REF) | payer OTHER, SELFPAY ==
[2024-12-04 07:58] LABS: Hematocrit 41.3 % (42.0-52.0); Mean Corpuscular HGB Conc 33.9 g/dl (31.0-36.0); Mean Corpuscular Hemoglobin 30.8 pg (27.0-33.0); Platelet Count 228 X10*3/uL (160-400); Red Blood Count 4.54 X10*6/uL (4.60-5.80); Red Cell Distribution Width 13.4 % (11.0-16.0); White Blood Count 9.5 X10*3/uL (4.8-10.8)
[2024-12-04 08:30] LABS: Alanine Aminotransferase 57 U/L (0-40); Albumin Level 4.6 g/dL (3.5-5.0); Alkaline Phosphatase 82 U/L (39-117); Anion Gap 9 (12-20); Aspartate Amino Transferase 32 U/L (5-37); Bilirubin Total 0.3 mg/dL (0.0-1.0); Blood Urea Nitrogen 16 mg/dL (9-16); Calcium 9.1 mg/dL (8.4-10.2); Carbon Dioxide 27 mmol/L (22-29); Chloride 109 mmol/L (96-108); Cholesterol 160 mg/dL (<200); Estimated Glomerular Filt Rate > 60; Glucose Fasting 110 mg/dL (60-99); HDL Cholesterol 24 mg/dL (>40); LDL Cholesterol Calculated 107 mg/dL (<100); Potassium 4.1 mmol/L (3.3-5.1); Sodium 141 mmol/L (135-145); Total Protein 7.4 g/dL (6.5-8.0); Triglycerides 146 mg/dL (<150)
[2024-12-04 08:41] LABS: Prostate Specific Antigen 3.71 ng/mL (<0.05-4.0)
[2024-12-04 08:47] LABS: Vitamin D 25-OH Total 16.5 ng/mL (>30)
[2024-12-04 09:45] LABS: Creatinine Urine 241.45 mg/dL
[2024-12-11 00:59] LABS: Testosterone, Total 169 ng/dL (250-1100)
== END 2024-12-04 07:19 | disposition home or self-care (01) ==
LOC: HO.LAB 07:18
PROVIDERS: Absent Provider Internal Medicine; PCP Internal Medicine; Visit Provider Urology
DX: Z12.5 Encounter for screening for malignant neoplasm of prostate (principal); R80.9 Proteinuria, unspecified; E11.65 Type 2 diabetes mellitus with hyperglycemia; E78.5 Hyperlipidemia, unspecified; E55.9 Vitamin D deficiency, unspecified
CPT/HCPCS: 36415; 80053; 80061; 82043; 82306; 82570; 84153; 84403; 85027

== ENCOUNTER 2024-12-14 10:44 | Outpatient (AMB) | payer OTHER, SELFPAY ==
--- OUTSIDE RECORDS SUMMARY | 2024-12-14 11:26 | XMS_ITS | Clinical Summary ---
Author Organization [facility] Address [address] [place] [phone] Phone Care Team Providers Care Mri Tech Name Role Phone Cynthia Rizzo MD Primary Care Provider [phone] Allergies No known active allergies Medications No known medications Active Problems No known active problems Surgical History Surgery Date Site/Laterality Comments CARDIAC SURGERY Medical History Medical History Date Comments Diabetes mellitus ([facility] V24, [facility] V28) Hypertension Social History Tobacco Use Types Packs/Day Years Used Date Smoking Tobacco: Every Day Cigarettes Smokeless Tobacco: Never Tobacco Cessation:Ready to Q uit: Not Asked; Counseling Given: Not Answered Alcohol Use Standard Drinks/Week Comments Never 0 (1 standard drink = 0.6 oz pur e alcohol) Sex and Gender Information Value Date Recorded Sex Assigned at Male 08/10/2024 3:59 PM EST Legal Sex Male 5:19 AM EST Gender Identity Male 08/10/2024 3:59 PM EST Sexual Orientation Straight 08/10/2024 3: 59 PM EST Obstetrics History Last Filed Vital Signs Vital Sign Reading Time Taken Comments Blood Pressure 137/77 08/10/2024 6:31 PM EST Pulse 91 08/10/2024 6:31 PM EST Temperature 36.5 C (97.7 F) 08/10/2024 6:31 PM EST Respiratory Rate 20 08/10/2024 6:31 PM EST Oxygen Saturation 94% 08/10/2024 6:31 PM EST Inhaled Oxygen Concentration - - Weight 129 kg (285 lb) 08/10/2024 11:29 AM EST Height 180.3 cm (5' 11 ) 08/10/2024 11:29 AM EST Body Mass Index 39.75 08/10/2024 11:29 AM EST Plan of Treatment Health Maintenance Due Date Last Done Comments DTaP,Tdap,and Td Vaccines (1 - Tdap) 09/22/1991 Hepatitis B Vaccines (1 of 3 - 19+ 3-dose series) 09/22/1991 Pneumococcal Vaccine: 50+ Years (2 of 2 - PCV) 08/24/2017 08/24/2016 Pneumococcal Vaccine: Pediatrics (0 to 5 Years) and At-Risk Patients (6 to 49 Years) (2 of 2 - PCV) 08/24/2017 08/24/2016 Zoster Vaccines (1 of 2) 2022 COVID-19 Vaccine (3 - 2023- season) 2024 07/17/2021, 05/06/2021 Cholesterol Screening (Lipid Panel) 04/27/2024 Colorectal Cancer Screening: Colonoscopy 04/27/2024 Depression Screening 04/27/2024 HIV Screening 04/27/2024 Hepatitis C Screening 04/27/2024 Medicare Annual Wellness Visit 04/27/2024 Social Influencers of Health Screening 04/27/2024 Influenza Vaccine (#1) 2025 , 06/30/2023, 04/10/2021, Additional history exists Hypertension/CHF/CAD Annual BMP Blood Test 08/10/2025 08/10/2024, 04/26/2024 HIB Vaccines Aged Out No longer eligi ble based on patient's age to complete this topic HPV Vaccines Aged Out No longer eligi ble based on patient's age to complete this topic Hepatitis A Vaccines Aged Out No long er eligible based on patient's age to complete this topic IPV Vaccines Aged Out No longer eligi ble based on patient's age to complete this topic MMR Vaccines Aged Out No longer eligi ble based on patient's age to complete this topic Meningococcal ACWY Vaccine Aged Out N o longer eligible based on patient's age to complete this topic Meningococcal B Vaccine Aged Out No l onger eligible based on patient's age to complete this topic RSV Immunization Patients Under 20 months Aged Out No longer eligible based on patient's age to complete this topic Varicella Vaccines Aged Out No longer eligible based on patient's age to complete this topic Procedures Procedure Name Priority Date/Time Associated Diagnosis Comments COMPREHENSIVE METABOLIC PANEL STAT 08/10/2024 11:43 AM EST from Last 3 Months or Most Recently Relevant to Health Maintenance Results * (ABNORMAL) Comprehensive metabolic panel (08/10/2024 11:43 AM EST) Sodium 136 133 - 145 mmol/L LAB CHEMISTRY METHOD 08/10/2024 12:45 PM [facility] Potassium 3.7 3.5 - 5.5 mmol/L LAB CHEMISTRY METHOD 08/10/2024 12:45 PM [facility] Chloride 100 96 - 110 mmol/L LAB CHEMISTRY METHOD 08/10/2024 12:45 PM [facility] CO2 27 21 - 32 mmol/L LAB CHEMISTRY METHOD 08/10/2024 12:45 PM [facility] Anion Gap 9 3 - 11 LAB CHEMISTRY METHOD 08/10/2024 12:45 PM [facility] Glucose 252(H) 70 - 100 mg/dL LAB CHEMISTRY METHOD 08/10/2024 12:45 PM [facility] BUN 17 5 - 25 mg/dL LAB CHEMISTRY METHOD 08/10/2024 12:45 PM [facility] Creatinine 1.07 0.70 - 1.30 mg/dL LAB CHEMISTRY METHOD 08/10/2024 12:45 PM [facility] eGFR 84 >=60 mL/min/1. 73m2 LAB CHEMISTRY METHOD 08/10/2024 12:45 PM [facility] Comment:Calculation based on the Chronic Kidney Disease Epidemiology Collaboration (CKD-EPI) equation refit without adjustment for race. BUN/Creatinine Ratio 15.9 LAB CHEMISTRY METHOD 08/10/2024 12:45 PM [facility] Calcium 9.8 8.5 - 10.5 mg/dL LAB CHEMISTRY METHOD 08/10/2024 12:45 PM [facility] AST (SGOT) 32 10 - 42 unit/L LAB CHEMISTRY METHOD 08/10/2024 12:45 PM [facility] ALT (SGPT) 63(H) 10 - 60 unit/L LAB CHEMISTRY METHOD 08/10/2024 12:45 PM EST [facility] Alkaline Phosphatase 100 42 - 121 unit/L LAB CHEMISTRY METHOD 08/10/2024 12:45 PM [facility] Total Protein 8.0 6.0 - 8.0 g/dL LAB CHEMISTRY METHOD 08/10/2024 12:45 PM EST [facility] Albumin 4.3 3.2 - 5.0 g/dL LAB CHEMISTRY METHOD 08/10/2024 12:45 PM [facility] Total Bilirubin 0.6 0.0 - 1.4 mg/dL LAB CHEMISTRY METHOD 08/10/2024 12:45 PM [facility] Blood Venous blood specimen / Unknown Venipuncture / Unknown 08/10/2024 11:43 AM EST 08/10/2024 12:15 PM EST Josué Helms MD LAB BLOOD ORDERABLES Greta l Result [facility] [address] [place] [address], from Last 3 Months or Most Recently Relevant to Health Maintenance [place] [address] [address] [place] [address] MEDICARE Member Subscriber Plan / Payer (Ef fective 2023-Present) Name:Thomas Leung Relation to Subscriber:Self Name:Thomas Leung Payer ID:[id number] Group ID:[id number] Type:Not on file Address: [place] [address] [address] [address] Care Teams Mri Tech Relationship Specialty Start Date End Date Cynthia Rizzo MD [address] [place] [address] PCP - General Internal Medicine 04/26/24
--- NOTE | 2024-12-14 11:33 | A.OFFVIS_ITS ---
Intake Visit Reasons: 6 follow up/ Testo Intake Note: Patient is present for F/U PSA/TESTOSTERONE Urology Medication: TESTOSTERONE Imaging done :08/10/24 labs done 12/04/24 PSA:3.71, Testosterone :169 Antibiotic Allergy:NONE Blood Thinner:ASPIRIN Muffle Worker Required: No Accompanied by: Self / Same As Patient Allergies No Known Allergies Allergy (Verified 12/14/24 11:43) HPI Comments Details: Thomas is a very pleasant male. He is seen for the following urologic conditions - low testosterone - erectile dysfunction Has been on testosterone Did not attend appointment recently Feel significant benefit when taking medications Some improvement back on injectables Wednesday injection day, lab day Continue with 0.5 mg weekly Refills provided Six-month follow-up labs Erectile dysfunction Underwent CABG age 48 2020 Failed p.r.n. medications Associated conditions hypertension, dyslipidemia - on medications Partial response to tadalafil for 5 mg daily. Did have heartburn Increase tadalafil to 10 mg, add daily Pepcid Hypogonadism 11/25 T 140 Associated conditions include KHOA and pain with opioid use Current therapy testosterone - 100 mg subcu weekly Injection day Wednesday, lab day Laboratories 01/25 T 450, Hct 42%, 07/29 T166 P 0.6, 01/26 T 295 0.6 42, 11/27 205 Wednesday, 07/31 T 300, 04/30 T 156 PSA 2.5 PFSH Medical History (Updated 12/14/24 @ 12:02 by Delvin Lock MD) Erectile dysfunction associated with type 2 diabetes mellitus Erectile dysfunction Morbid obesity with BMI of 40.0-44.9, adult CAD (coronary artery disease) Diabetes mellitus Sternal pain Insomnia Severe depression Morbid obesity KHOA (obstructive sleep apnea) Smoker Long-term use of aspirin therapy Essential hypertension Surgical History Stented coronary artery History of sternectomy History of coronary artery bypass graft x 3 Family History Father Diabetes Hypertension Stroke CAD (coronary artery disease) Mother Hypertension Diabetes Paternal Grandmother Cancer Skin cancer Paternal Uncle Colon cancer Family/Other FH: mental illness Maternal Uncle Cancer Social History Household Members Other:: lives alone Housing: Apartment Are you a primary women's health care nurse practitioner to a significant other at home: No Do you presently have visiting nurse or other home services: No Alcohol intake: never Patient Tobacco Use Status: Current someday Tobacco user Tobacco use type: Cigarette Cigarettes Per Day: 2 e-Cigarette/Vaping Use: Never Used Second Hand Smoke Exposure: No service: No Current occupational status: unemployed Cognitive needs: No Hearing needs: No Vision needs: Yes Review of Systems Const Denies chills and Denies fever(s) Card Reports no additional complaints and Denies syncope Resp Denies cough GI Denies abdominal pain and Denies heartburn Reports as per HPI and Denies change in libido Neuro Denies syncope Psych Denies change in libido Endo Denies change in libido Physical Exam Const General: cooperative, healthy appearing, comfortable and no acute distress Orientation/consciousness: patient oriented x3 HEENT Face and sinus: Yes normal facial exam Mouth: moist mucous membranes Neck Neck: Yes normal visual inspection, Yes full ROM and Yes trachea midline Chest Chest palpation & inspection: normal inspection of the chest Resp Effort & Inspection: normal respiratory effort, able to speak in complete sentences and no respiratory distress GI Inspection: Yes normal to inspection Back/Spine/Pelvis Cervical Spine: normal cervical lordosis Thoracic/Lumbar Spine: thoracic and lumbar spine normal to inspection Skin General skin exam: no rashes or lesions noted Neuro General: patient oriented x3, gait normal, tone normal and moves all extremities Extrem General: Yes normal to inspection and Yes capillary refill normal Assessment & Plan Assessment & Plan (1) Hypogonadism in male: Code(s): E29.1 - Testicular hypofunction Category: Medical (2) Erectile dysfunction associated with type 2 diabetes mellitus: Code(s): E11.69 - Type 2 diabetes mellitus with other specified complication; N52.1 - Erectile dysfunction due to diseases classified elsewhere Category: Medical Plan Restart testosterone Orders: Orders Testosterone, Total 5 Months E29.1 - Testicular hypofunction Prostate Specific Antigen 5 Months E29.1 - Testicular hypofunction Hematocrit 5 Months E29.1 - Testicular hypofunction Medications: Refilled testosterone cypionate (Depo-Testosterone) 100 mg (0.5 mL) subcut QWEEK 2 mL 5RF 4 weeks E29.1 - Testicular hypofunction, [id number] Patient Instructions: This note is constructed using voice recognition software. While every effort has been made to ensure accuracy business process specialist errors may have been included. Imaging studies, laboratory and physical exam results were discussed and reviewed in detail. No major barriers to patient understanding were identified. An opportunity to ask questions regarding the treatment plan was provided. All questions were answered. The patient expressed understanding and agreement with the above treatment plan. The patient is aware they should contact our office by phone for worsening of their current condition or the appearance of new urologic symptoms. Compliance is encouraged with any medications and followup testing that is ordered. It is a privilege to participate in the urologic care of your patient. If you have any questions or concerns regarding treatment for the above conditions, or other urologic issues, please do not hesitate to contact me. The office telepho ne contact is [phone]. Sincerely, Dr Delvin Lock MD, [facility] - Urology Compassionate Specialist Care for the Genitourinary System Coding Level of Care Code Est Pt Level 3 (90048) Complex EM visit Add On G2211 Diagnoses Hypogonadism in male E29.1 Erectile dysfunction associated with type 2 diabetes mellitus E11.69; N52.1
== END 2024-12-14 12:37 | disposition home or self-care (01) ==
LOC: HO.HUSH 10:45
PROVIDERS: PCP Internal Medicine; Visit Provider Urology
DX: E29.1 Testicular hypofunction (principal); E11.69 Type 2 diabetes mellitus with other specified complication; N52.1 Erectile dysfunction due to diseases classified elsewhere; Z13.9 Encounter for screening, unspecified
CPT/HCPCS: 99213; G2211

== ENCOUNTER → 2024-12-14 10:44 | Outpatient (BNVA) | payer OTHER, SELFPAY | PROVIDERS: PCP Internal Medicine; Visit Provider Urology | DX: E29.1 Testicular hypofunction (principal); E11.69 Type 2 diabetes mellitus with other specified complication; N52.1 Erectile dysfunction due to diseases classified elsewhere | CPT/HCPCS: 81003; 99212 ==

== ENCOUNTER 2025-03-13 13:34 | Outpatient (AMB) | payer OTHER, SELFPAY ==
--- NOTE | 2025-03-13 13:46 | A.OFFPC_ITS ---
Vital Signs 03/13/25 13:47 Height 5 ft 11 in Weight 275 lb 4 oz BMI 38.4 BP 118/64 Blood Pressure Location Lt brachial Position Sitting Pulse 87 Pulse Source Pulse Oximeter Pulse Oximetry (%) 94 Oxygen Delivery Method Room Air Intake Visit Reasons: dm Smoking Tobacco Packing Machine Hand Required: No Accompanied by: Self / Same As Patient Allergies No Known Allergies Allergy (Verified 03/13/25 14:08) Medication List - Last Reconciled 03/13/25 by Cynthia Rizzo MD atorvastatin 80 mg PO DAILY 90 days blood sugar diagnostic (FreeStyle Lite Strips) As directed test 2x daily blood-glucose meter (FreeStyle Lite Meter kit) As directed 2x day clopidogrel (Plavix) 75 mg PO DAILY famotidine 20 mg PO DAILY 90 days fenofibrate 54 mg PO DAILY 90 days metoprolol succinate ER 25 mg PO DAILY 90 days oxycodone 10 mg PO Q6H PRN 30 days semaglutide (Ozempic) 1 mg (0.75 mL) subcut QWEEK 4 weeks testosterone cypionate (Depo-Testosterone) 100 mg (0.5 mL) subcut QWEEK 4 weeks Tobacco use date assessed: 03/13/25 Dental Screening Dental Screen Date: 03/13/25 Did you have a dental visit in the last 12 months?: Yes Did you have a dental problem in the last 6 months where you did not have access to dental care?: No Was dental information given to patient?: Patient has dentist HPI HPI Comments History of Present Illness Details The patient is a 54-year-old male presenting with a follow-up for diabetes, hypertension, and hyperlipidemia. Also has testosterone deficency follow by urology. He used to be on oxycodone which was discontinue recently due to breaking the pain management contract. He was called and said he was going to make it here but never make it to the office. He is aware that oxycodone will be discontinued for at least a year. Diabetes Mellitus: The patient's diabetes is well-controlled with a recent HbA1c of 5.9%. He is currently on Ozempic 1 mg weekly, which is being approved by his insurance. Hypertension: The patient's blood pressure is within the target range, being less than 130/80 mmHg. Hyperlipidemia: The patient was previously noted to have an elevated LDL cholesterol level. He is on atorvastatin 80 mg and Plavix, and fenofibrate was discontinued to be reassessed in four months. Tobacco Use: The patient reports smoking occasionally, having recently resumed after a period of cessation. [facility] Medical History Erectile dysfunction associated with type 2 diabetes mellitus Erectile dysfunction Morbid obesity with BMI of 40.0-44.9, adult CAD (coronary artery disease) Diabetes mellitus Sternal pain Insomnia Severe depression Morbid obesity KHOA (obstructive sleep apnea) Smoker Long-term use of aspirin therapy Essential hypertension Surgical History Stented coronary artery History of sternectomy History of coronary artery bypass graft x 3 Family History Father Diabetes Hypertension Stroke CAD (coronary artery disease) Mother Hypertension Diabetes Paternal Grandmother Cancer Skin cancer Paternal Uncle Colon cancer Family/Other FH: mental illness Maternal Uncle Cancer Social History Household Members Other:: lives alone Housing: Apartment Are you a primary elderly caregiver to a significant other at home: No Do you presently have visiting nurse or other home services: No Alcohol intake: never Patient Tobacco Use Status: Current someday Tobacco user Tobacco use type: Cigarette Cigarettes Per Day: 2 e-Cigarette/Vaping Use: Never Used Second Hand Smoke Exposure: No service: No Current occupational status: unemployed Cognitive needs: No Hearing needs: No Vision needs: Yes Questionnaire Thrive Questionnaire Date Thrive assessed: 07/04/24 I am a: Patient What is your living situation today?: I choose not to answer this question Within the past 12 months, did the food you bought not last and you didn't have the money to get more?: I choose not to answer this question Within the past 12 months, did you worry whether your food would run out before you got money to buy more?: I choose not to answer this question Do you have trouble paying for medicines?: I choose not to answer this question Do you have trouble getting transportation to medical appointments?: I choose not to answer this question Do you have trouble paying your heating and electricity bill?: I choose not to a nswer this question Do you have trouble taking care of your child, family member or friend?: I choose not to answer this question Do you have trouble with day-to-day activities such as bathing, preparing meals, shopping, managing finances, etc.?: I choose not to answer this question Are you currently unemployed and looking for a job?: I choose not to answer this question Are you interested in more education?: I choose not to answer this question Please select the resources that you would like help with: None Currently or been in a relationship where the following occur: I choose not to answer THRIVE Score: 0 AUDIT C Alcohol Use Questionnaire (AUDIT-C) 1. How often do you have a drink containing alcohol?: Never 3. How often do you have six or more drinks on one occasion?: Never Total Score: 0 CÉSAR-7 AMB Questionnaire CÉSAR-7 Date CÉSAR - 7 assessed: 07/04/24 Source: Developed by Drs. Reji Nelson, Linda Sancehz, Anders [employer] and colleagues, with an educational arnold from [employer]. Review of Systems Const All systems reviewed & are unremarkable except as noted in HPI and below Card Denies chest pain at rest, Denies chest pain with activity, Denies edema, Denies irregular heart rhythm, Denies claudication, Denies dyspnea, Denies dyspnea on exertion, Denies orthopnea, Denies paroxysmal nocturnal dyspnea and Denies slow heart rate Resp Denies cough, Denies dyspnea and Denies dyspnea on exertion GI Denies abdominal pain, Denies change in bowel habits, Denies excessive flatus, Denies nausea and Denies vomiting Physical exam (Primary Care) Vital Signs: Last Vital Signs Pulse 87 03/13/25 13:47 BP 118/64 03/13/25 13:47 Pulse Ox 94 03/13/25 13:47 Oxygen Delivery Method Room Air 03/13/25 13:47 BMI result Body Mass Index 38.4 BMI Assessment/Plan discussion: High BMI High, discussed plan: lifestyle, weight reduction, dietary and physical activity Tobacco/Smoking Status: Tobacco use Status Tobacco use date assessed 03/13/25 03/13/25 13:48 Patient Tobacco Use Status Current someday Tobacco 03/13/25 13:48 Tobacco use type Cigarette 03/13/25 13:48 e-Cigarette/Vaping Use Never Used 03/13/25 13:48 Are you ready to quit: No Tobacco cessation counseling provided: No Thrive Assessment: Date of Thrive Assessment Date Thrive assessed 07/04/24 03/13/25 13:48 Currently or been in a relationship where the following occur: I choose not to answer Resp Effort & Inspection: normal respiratory effort Auscultation: clear to auscultation bilaterally Cardio Jugular venous distension: no JVD Rate: regular rate Rhythm: regular rhythm Heart sounds: S1 normal heart sound present and S2 normal heart sound present Extrem General: Yes full ROM Results AMB Hemoglobin A1c AMB Hemoglobin A1c 5.9 % Last Edit by NIRU Esposito on 03/13/25 14 :25 Results Reviewed Results Reviewed: Laboratory Last Values Hgb A1c (Clinic) 5.9 % (4.0-6.0) 03/13/25 13:47 Coding Level of Care Code Est Pt Level 4 (48623) Complex EM visit Add On G2211 Diagnoses Type 2 diabetes mellitus with hyperglycemia, without long-term current use of insulin E11.65 Diabetes mellitus complication status: with hyperglycemia Diabetes mellitus long term care social worker insulin use: without long term care social worker use Diabetes mellitus type: type 2 Essential hypertension I10 Mixed hyperlipidemia E78.2 Hypogonadism in male E29.1 Time Spent (min) 21 Assessment & Plan Assessment & Plan (1) Diabetes mellitus: Code(s): E11.9 - Type 2 diabetes mellitus without complications Category: Medical Qualifiers: Diabetes mellitus complication status: with hyperglycemia Diabetes mellitus fdc insulin use: without long term care social worker use Diabetes mellitus type: type 2 Qualified Code(s): E11.65 - Type 2 diabetes mellitus with hyperglycemia (2) Essential hypertension: Code(s): I10 - Essential (primary) hypertension Category: Medical (3) Mixed hyperlipidemia: Code(s): E78.2 - Mixed hyperlipidemia Category: Medical (4) Hypogonadism in male: Code(s): E29.1 - Testicular hypofunction Category: Medical Plan Plan Patient was informed and verbally consented to the use of an ambient scribe for clinic note documentation during this visit. 1. Diabetes Mellitus The patient's diabetes is well-controlled with an HbA1c of 5.9%. He is currently on Ozempic 1 mg weekly, which is being approved by his insurance. 2. Hypertension The patient's blood pressure is within the target range, being less than 130/80 mmHg. 3. Hyperlipidemia The patient was previously noted to have an elevated LDL cholesterol level. He is on atorvastatin 80 mg and Plavix, and fenofibrate was discontinued to be reassessed in four months. 4. Tobacco Use The patient reports smoking occasionally, having recently resumed after a period of cessation. Orders: Orders AMB Hemoglobin A1c Today E11.65 - Type 2 diabetes mellitus with hyperglycemia Lipid Panel 4 Months E78.5 - Hyperlipidemia, unspecified Microalbumin, Random (w Creat) 4 Months R80.9 - Proteinuria, unspecified Comprehensive [place]. Panel Fast 4 Months E11.65 - Type 2 diabetes mellitus with hyperglycemia Medications: Discontinued oxycodone Partial Fill upon patient request. Discontinued Reason: Patient Completed Course 10 mg PO Q6H 30 days PRN 120 tabs 0RF pain fenofibrate Discontinued Reason: Patient Completed Course 54 mg PO DAILY 90 days 90 tabs 1RF
[2025-03-13 13:47] VITALS: BP 118/64; PULSE 87; O2SAT 94; BMI 38.4
--- OUTSIDE RECORDS SUMMARY | 2025-03-13 16:42 | XMS_ITS | Clinical Summary ---
Author Organization [facility] Address [address] [place] [phone] Phone Care Team Providers Care Dental Detail Representative Name Role Phone Cynthia Rizzo MD Primary Care Provider [phone] Allergies No known active allergies Medications No known medications Active Problems No known active problems Surgical History Surgery Date Site/Laterality Comments CARDIAC SURGERY Medical History Medical History Date Comments Diabetes mellitus ([facility] V24, [facility] V28) Hypertension Social History Tobacco Use [...] Health Maintenance Due Date Last Done Comments Colorectal Cancer Screening: Colonoscopy 1972 DTaP,Tdap,and Td Vaccines (1 - Tdap) 09/22/1991 Hepatitis B Vaccines (1 of 3 - 19+ 3-dose series) 09/22/1991 Pneumococcal Vaccine: 50+ Years (2 of 2 - PCV) 08/24/2017 08/24/2016 Zoster Vaccines (1 of 2) 2022 Cholesterol Screening (Lipid Panel) 04/27/2024 HIV Screening 04/27/2024 Hepatitis C Screening 04/27/2024 Medicare Annual Wellness Visit 04/27/2024 Social Influencers of Health Screening 04/27/2024 Depression Screening 06/07/2024 COVID-19 Vaccine ( - 2024- season) 2025 07/17/2021, 05/06/2021 Influenza Vaccine (#1) 2025 , 06/30/2023, 04/10/2021, Additional history exists Hypertension/CHF/CAD Annual BMP Blood Test 08/10/2025 08/10/2024, 04/26/2024 RSV Immunization Adult Patients (1 - 1-dose 75+ series) 09/22/2047 HIB Vaccines Aged Out No longer eligi [...] mmol/L LAB CHEMISTRY METHOD 08/10/2024 12:45 PM [facility] Potassium 3.7 3.5 - 5.5 mmol/L LAB CHEMISTRY METHOD 08/10/2024 12:45 PM [facility] Chloride 100 96 - 110 mmol/L LAB CHEMISTRY METHOD 08/10/2024 12:45 PM [facility] CO2 27 21 - 32 mmol/L LAB CHEMISTRY METHOD 08/10/2024 12:45 PM [facility] Anion Gap 9 3 - 11 LAB CHEMISTRY METHOD 08/10/2024 12:45 PM [facility] Glucose 252(H) 70 - 100 mg/dL LAB CHEMISTRY METHOD 08/10/2024 12:45 PM [facility] BUN 17 5 - 25 mg/dL LAB CHEMISTRY METHOD 08/10/2024 12:45 PM [facility] Creatinine 1.07 0.70 - 1.30 mg/dL LAB CHEMISTRY METHOD 08/10/2024 12:45 PM [facility] eGFR 84 >=60 mL/min/1. 73m2 LAB CHEMISTRY METHOD 08/10/2024 12:45 PM [facility] Comment:Calculation based on the Chronic Kidney Disease Epidemiology Collaboration (CKD-EPI) equation refit without adjustment for race. BUN/Creatinine Ratio 15.9 LAB CHEMISTRY METHOD 08/10/2024 12:45 PM [facility] Calcium 9.8 8.5 - 10.5 mg/dL LAB CHEMISTRY METHOD 08/10/2024 12:45 PM [facility] AST (SGOT) 32 10 - 42 unit/L LAB CHEMISTRY METHOD 08/10/2024 12:45 PM [facility] ALT (SGPT) 63(H) 10 - 60 unit/L LAB CHEMISTRY METHOD 08/10/2024 12:45 PM EST [facility] Alkaline Phosphatase 100 42 - 121 unit/L LAB CHEMISTRY METHOD 08/10/2024 12:45 PM EST [facility] Total Protein 8.0 6.0 - 8.0 g/dL LAB CHEMISTRY METHOD 08/10/2024 12:45 PM EST [facility] Albumin 4.3 3.2 - 5.0 g/dL LAB CHEMISTRY METHOD 08/10/2024 12:45 PM [facility] Total Bilirubin 0.6 0.0 - 1.4 mg/dL LAB CHEMISTRY METHOD 08/10/2024 12:45 PM [facility] Blood Venous blood specimen / Unknown Venipuncture / Unknown 08/10/2024 11:43 AM EST 08/10/2024 12:15 PM EST Josué Helms MD LAB BLOOD ORDERABLES Greta l Result [facility] [address] [place] [address], from Last 3 Months or Most Recently Relevant to Health Maintenance [place] [address] [place] [address] MEDICARE Member Subscriber Plan / Payer (Ef fective 2023-Present) Name:Thomas Leung Relation to Subscriber:Self Name:Thomas Leung Payer ID:[id number] Group ID:[id number] Type:Not on file Address: [place] [address] [address] [phone] Care Teams Dental Detail Representative Relationship Specialty Start Date End Date Cynthia Rizzo MD [address] [place] [phone] PCP - General Internal Medicine 04/26/24
== END 2025-03-13 14:21 | disposition home or self-care (01) ==
LOC: HO.HMCH 13:35
PROVIDERS: PCP Internal Medicine; Visit Provider Internal Medicine
DX: E11.65 Type 2 diabetes mellitus with hyperglycemia (principal); I10 Essential (primary) hypertension; E29.1 Testicular hypofunction

== ENCOUNTER → 2025-03-13 13:34 | Outpatient (BNVA) | payer OTHER, SELFPAY | PROVIDERS: PCP Internal Medicine; Visit Provider Internal Medicine | DX: E11.65 Type 2 diabetes mellitus with hyperglycemia (principal); I10 Essential (primary) hypertension; E78.2 Mixed hyperlipidemia; E29.1 Testicular hypofunction; Z79.02 Long term (current) use of antithrombotics/antiplatelets; Z79.85 Long-term (current) use of injectable non-insulin antidiabetic drugs; Z79.899 Other long term (current) drug therapy | CPT/HCPCS: 83036; 99212 ==